=== PATIENT | female | born 1995 | race Caucasian/White ===

== ENCOUNTER 2023-03-18 15:36 | Emergency (ER) | payer OTHER, SELFPAY ==
--- NOTE | ~2023-03-18 | CT_ITS ---
EXAMINATION: CT brain wo con DATE: 03/18/2023 16:08 INDICATION: Dizziness TECHNIQUE: Computed tomography (CT) of the head was performed without intravenous contrast. Sagittal and coronal reconstructions were performed. The mA was adjusted according to patient size. Iterative reconstruction technique was employed. The dose-length product was 605.33 mGy-cm. COMPARISON: None FINDINGS: No acute intracranial hemorrhage, acute infarction or abnormal extra axial fluid collection. Ventricl es are normal and symmetric. No mass/mass effect. The orbits, paranasal sinuses and mastoid air cells are normal. IMPRESSION: 1. Normal head CT. Reviewed, dictated and finalized at location A. IMPRESSION: 1. Normal head CT.
[2023-03-18 15:49] VITALS: BP 128/86; PULSE 80; RESP 16; TEMP 36.4; O2SAT 100
--- NOTE | 2023-03-18 15:51 | ED.GENADULT ---
HPI - General Adult General Chief complaint: Dizziness Stated complaint: near syncopal episode with dizziness Time Seen by Provider: 03/18/23 18:10 History of Present Illness HPI narrative: Suzan Canales presents with reports that while she was walking at work at around 1330 she started to feel dizzy/light headed. Denies any vision changes/ denies headache. Denies any pain anywhere Takes control daily Related Data Allergies Allergy/AdvReac Type Severity Reaction Status Date / Time No Known Allergies Allergy Verified 03/18/23 17:59 Course Vital Signs Vital signs: Vital Signs Temperature 36.4 C 03/18/23 15:49 Pulse Rate 80 03/18/23 15:49 Respiratory Rate 16 03/18/23 15:49 Blood Pressure 128/86 03/18/23 15:49 Pulse Oximetry 100 03/18/23 15:49 Oxygen Delivery Room Air 03/18/23 15:49 Temperature 36.4 C 03/18/23 15:49 Pulse Rate 74 03/18/23 19:36 Respiratory Rate 18 03/18/23 19:36 Blood Pressure 120/74 03/18/23 19:36 Pulse Oximetry 100 03/18/23 19:36 Oxygen Delivery Room Air 03/18/23 15:49 Medical Decision Making MDM Narrative Medical decision making narrative: this was the MSE note, please see the alternate note by the attending Vital Signs Vital Signs: Vital Signs Temperature 36.4 C 03/18/23 15:49 Pulse Rate 80 03/18/23 15:49 Respiratory Rate 16 03/18/23 15:49 Blood Pressure 128/86 03/18/23 15:49 Pulse Oximetry 100 03/18/23 15:49 Oxygen Delivery Room Air 03/18/23 15:49 Temperature 36.4 C 03/18/23 15:49 Pulse Rate 74 03/18/23 19:36 Respiratory Rate 18 03/18/23 19:36 Blood Pressure 120/74 03/18/23 19:36 Pulse Oximetry 100 03/18/23 19:36 Oxygen Delivery Room Air 03/18/23 15:49 Lab Data 03/18/23 16:01 03/18/23 16:01 Labs: Lab Results 03/18/23 03/18/23 Range/Units 16:01 16:04 WBC 7.3 (4.5-10.0) K/mm3 RBC 4.51 (4.2-5.4) M/mm3 Hgb 13.5 (12.0-15.0) g/dL Hct 41.0 (37.0-47.0) % MCV 90.9 (80-100) fl MCH 29.9 (26-34) pg MCHC 32.9 (32-36) g/dl RDW 12.9 (11.5-14.5) % Plt Count 242 (150-375) k/mm3 MPV 10.3 (7.4-10.4) fl Immature Gran % (Auto) 0.3 (0-0.5) % Neut % (Auto) 48.8 (45.5-73.1) % Lymph % (Auto) 38.9 (18.3-44.2) % [place] % (Auto) 6.5 (2.6-8.5) % Eos % (Auto) 4.7 H (0-4.4) % Baso % (Auto) 0.8 (0.2-1.2) % Lymph # (Auto) 2.83 (0.9-3.2) K/mm3 [place] # (Auto) 0.5 (0.1-0.6) K/mm3 Eos # (Auto) 0.3 (0-0.3) K/mm3 Baso # (Auto) 0.1 (0.0-0.1) K/mm3 Abs Immat Gran (auto) 0.02 (0.00-0.031) K/mm3 Absolute Neuts (auto) 3.6 (1.3-6.7) K/mm3 Absolute Nucleated RBC 0.0 (0.0-0.012) K/mm3 Nucleated RBC % 0.0 (0.0-0.2) % Sodium 140 (137-145) mmol/L Potassium 3.3 L (3.4-5.0) mmol/L Chloride 105 (98-107) mmol/L Carbon Dioxide 27 (22-30) mmol/L Anion Gap 8 (8-16) mmol/L BUN 5 L (7-17) mg/dL Creatinine 0.60 L (0.7-1.0) mg/dL Estim Creat Clear Calc 112 ml/min Estimated GFR > 60 (59 - ) Glucose 98 (65-110) mg/dL Calcium 9.0 (8.4-10.2) mg/dL Total Bilirubin 0.5 (0.2-1.3) mg/dL AST 22 (14-36) U/L ALT 26 (6-35) U/L Alkaline Phosphatase 45 (38-126) U/L Total Protein 9.0 H (6.3-8.2) g/dL Albumin 4.6 (3.5-5.1) g/dL Urine Color Yellow (Yellow) Urine Appearance Clear (Clear) Urine pH 6.5 (5.0-9.0) Ur Specific [place] 1.006 (1.001-1.035) Urine Protein Negative (Negative) mg/dL Urine Glucose (UA) Negative (Negative) mg/dL Urine Ketones Negative (Negative) mg/dL Ur Blood (Man) Negative (Negative) Urine Nitrate Negative (Negative) Urine Bilirubin Negative (Negative) Urine Urobilinogen 0.2 (<2.0) mg/dL Leukocyte Esterase Rfl Trace H (Negative) TIBURCIO/UL Urine RBC 0-2 (0-2) /hpf Urine WBC 0-5 /hpf Ur Squamous Epith Cells Occasional (Few) /hpf Urine Bacteria None seen /hpf Urine Cast
--- NOTE | 2023-03-18 15:52 | ECG_ITS ---
Measurements Intervals [place] Rate: 87 P: 69 AL: 134 QRS: 79 QRSD: 97 T: 38 QT: 358 QTc: 431 Interpretive Statements SINUS RHYTHM NORMAL ECG NO PREVIOUS ECG AVAILABLE FOR COMPARISON Electronically Signed On 03-19-2023 8:54:20 CDT by Stu Thayer M.D.
[2023-03-18 16:06] LABS: Basophils Absolute Auto 0.1 K/mm3 (0.0-0.1); Basophils Percent Auto 0.8 % (0.2-1.2); Eosinophils Absolute Auto 0.3 K/mm3 (0-0.3); Eosinophils Percent Auto 4.7 % (0-4.4); Hemoglobin 13.5 g/dL (12.0-15.0); Immature Granulocyte Absolute 0.02 K/mm3 (0.00-0.031); Immature Granulocyte Percent A 0.3 % (0-0.5); Lymphocytes Absolute Auto 2.83 K/mm3 (0.9-3.2); Lymphocytes Percent Auto 38.9 % (18.3-44.2); Mean Corpuscular HGB Conc 32.9 g/dl (32-36); Mean Corpuscular Hemoglobin 29.9 pg (26-34); Mean Corpuscular Volume 90.9 fl (80-100); Mean Platelet Volume 10.3 fl (7.4-10.4); Monocytes Absolute Auto 0.5 K/mm3 (0.1-0.6); Monocytes Percent Auto 6.5 % (2.6-8.5); Neutrophils Absolute Auto 3.6 K/mm3 (1.3-6.7); Neutrophils Percent Auto 48.8 % (45.5-73.1); Platelet Count Result 242 k/mm3 (150-375); Red Blood Count 4.51 M/mm3 (4.2-5.4); Red Cell Distribution Width 12.9 % (11.5-14.5); White Blood Count 7.3 K/mm3 (4.5-10.0)
[2023-03-18 16:15] LABS: Alanine Aminotransferase 26 U/L (6-35); Albumin Level 4.6 g/dL (3.5-5.1); Alkaline Phosphatase 45 U/L (38-126); Anion Gap 8 mmol/L (8-16); Aspartate Amino Transferase 22 U/L (14-36); Bilirubin,Total 0.5 mg/dL (0.2-1.3); Blood Urea Nitrogen 5 mg/dL (7-17); Carbon Dioxide 27 mmol/L (22-30); Chloride 105 mmol/L (98-107); Estimated CRCL calculation 112 ml/min; Estimated Glomerular Filt Rate > 60; Glucose 98 mg/dL (65-110); Potassium 3.3 mmol/L (3.4-5.0); Sodium 140 mmol/L (137-145)
[2023-03-18] MEDS: MECLIZINE HCL 25 MG TABLET PO (16:26)
[2023-03-18 16:45] LABS: Appearance Urine Clear (Clear); Bacteria Urine None Seen /hpf; Bilirubin Urine Negative (Negative); Blood Urine Negative (Negative); Color Urine Yellow (Yellow); Glucose Urine UA Negative (Negative); Ketones Urine Negative (Negative); Leukocyte Esterase Ur Trace LEU/UL (Negative); Nitrate Urine Negative (Negative); Non Pathogenic Casts 0-2; Protein Urine Negative (Negative); RBC Urine 0-2 /hpf (0-2); Specific Grav Ur 1.006 (1.001-1.035); Squamous Epithelial Cell Urine Occasional /hpf (Few); Urobilinogen Urine 0.2 mg/dL (<2.0); WBC Urine 0-5 /hpf; pH Urine 6.5 (5.0-9.0)
[2023-03-18 17:05] LABS: Add Urine Microscopic? YES
--- NOTE | 2023-03-18 18:28 | ED.DIZZY ---
HPI - Dizziness General Chief Complaint: Dizziness Stated Complaint: near syncopal episode with dizziness Time Seen by Provider: 03/18/23 18:10 History of Present Illness HPI Narrative: 27 years old white female came to the emergency room because of sudden onset of dizziness, felt like she was going to pass out on arrival to her work today. Patient was standing for few minutes when she started having this symptom. She denies aggravating or relieving factors. Patient reported having similar symptoms in the past but did not last longer like today. Patient still having the symptoms after arrival to the ED. She denies any fever, chills, nausea, vomiting. Currently on control, she vapes, she does not drink or uses marijuana. She denies any headache, chest pain, shortness of breath, palpitation, back pain or abdominal pain. Related Data Allergies Allergy/AdvReac Type Severity Reaction Status Date / Time No Known Allergies Allergy Verified 03/18/23 17:59 Review of Systems Review of Systems: All systems reviewed & are unremarkable except as noted in HPI and below Exam Narrative: General appearance: Well-developed, well-nourished Skin: Normal color Head: Normocephalic, nontraumatic Eyes: Clear conjunctiva ENT: Oropharynx normal, ears normal, nose normal Neck: Supple, nontender Chest and respiratory: Airway patent, no respiratory distress, no accessory muscle use Heart: Regular rate/rhythm Abdomen: Soft, nontender, no organomegaly, quiet bowel sounds Vascular: Normal peripheral pulses, normal capillary refill. Musculoskeletal: Normal range of motion, nontender back Neurologic: Alert and oriented ?3, THEATRICAL PERFORMER is normal as tested, no gross motor deficit Course Reevaluation(s) Reevaluation #1: Patient feeling much better at the time of discharge, denying any symptoms, was able to get out of bed and walk around in the ED without any complaint. Date: 03/18/23 Time: 22:10 Vital Signs Vital signs: Vital Signs Temperature 36.4 C 03/18/23 15:49 Pulse Rate 80 03/18/23 15:49 Respiratory Rate 16 03/18/23 15:49 Blood Pressure 128/86 03/18/23 15:49 Pulse Oximetry 100 03/18/23 15:49 Oxygen Delivery Room Air 03/18/23 15:49 Temperature 36.4 C 03/18/23 15:49 Pulse Rate 74 03/18/23 19:36 Respiratory Rate 18 03/18/23 19:36 Blood Pressure 120/74 03/18/23 19:36 Pulse Oximetry 100 03/18/23 19:36 Oxygen Delivery Room Air 03/18/23 15:49 MDM - Dizziness MDM Narrative Medical decision making narrative: Patient presents with dizziness on arrival to work today. Vital signs unremarkable, physical examination as above, differential diagnosis includes orthostatic hypotension, electrolyte imbalance, dehydration, anxiety-like symptoms, vertigo. Work-up today include CBC, CMP, urine analysis showed no acute abnormalities CT head showed no acute abnormalities. Patient's mother reports that patient been working 2 jobs with long hours without rest. Stress, anxiety high likely going on in her life lately. Plan to discharge patient on no medication at this time, 3 days excuse of work and to follow-up with her family physician for further evaluation. Patient agreed. Differential Diagnosis Differential diagnosis: Likely orthostatic hypotension Medical Records Attestation: I reviewed the patient's medical records. Lab Data Attestation: I reviewed the patient's lab results. 03/18/23 16:01 03/18/23 16:01 Labs: Lab Results 03/18/23 03/18/23 Range/Units 16:01 16:04 WBC 7.3 (4.5-10.0) K/mm3 RBC 4.51 (4.2-5.4) M/mm3 Hgb 13.5 (12.0-15.0) g/dL Hct 41.0 (37.0-47.0) % MCV 90.9 (8
[2023-03-18 19:36] VITALS: BP 120/74; PULSE 74; RESP 18; O2SAT 100
== END 2023-03-18 19:36 | disposition home or self-care (01) ==
PROVIDERS: Nurse Practitioner Family; Emergency Provider Emergency Medicine; PCP Internal Medicine
DX: R42 Dizziness and giddiness (principal)
CPT/HCPCS: 36415; 70450; 80053; 81001; 85025; 93005; 99284; A9270

== ENCOUNTER 2023-05-13 10:29 | Emergency (ER) | payer OTHER, SELFPAY ==
--- NOTE | ~2023-05-13 | XR_ITS ---
EXAMINATION: XR ankle RT min 3V INDICATION: Right ankle pain TECHNIQUE: Four views of the right ankle are obtained. COMPARISON: None available FINDINGS: There is a subtle lucency in the proximal/dorsal aspect of the navicular which has a chroni c appearance. No acute fracture is identified. Bone alignment is normal. The soft tissues are unremar kable. IMPRESSION: 1. No acute osseous abnormality. Reviewed, dictated and finalized at location L. CO PLASTERER
[2023-05-13 10:39] VITALS: BP 127/86; PULSE 100; RESP 16; TEMP 37.1; O2SAT 100
--- NOTE | 2023-05-13 10:44 | ED.LOWEXIN ---
HPI - Extremity Injury (Lower) General Chief Complaint: Extremity Injury, Lower Stated Complaint: Right Ankle Pain Time Seen by Provider: 05/13/23 10:44 Source: patient, RN notes reviewed and old records reviewed Mode of arrival: ambulatory Limitations: no limitations History of Present Illness HPI Narrative: 28-year-old female presents to [facility] with complaints of right ankle pain since yesterday. No treatment prior to arrival. Patient states that she went to stand up out of a chair and rolled her ankle in for sleep. No bruising or swelling noted. No ecchymosis or erythema. Onset (ago): day(s) (1) Related Data Home Medications Medication Instructions Recorded Confirmed bupropion HCl 150 mg 24 hr tablet, mg PO 05/13/23 extended release levonorgestrel 0.15 mg-ethinyl tablet 05/13/23 estradiol 0.03 mg tablet (Altavera (28)) Allergies Allergy/AdvReac Type Severity Reaction Status Date / Time No Known Allergies Allergy Verified 05/13/23 10:43 Review of Systems Review of Systems: All systems reviewed & are unremarkable except as noted in HPI and below Constitutional: Constitutional: Reports no additional constitutional complaints Eyes: Eyes: Reports no additional eye complaints ENT: Reports system reviewed and no additional complaints, except as documented Cardiovascular: Cardiovascular: Reports no additional cardiovascular complaints, Denies chest pain and Denies dyspnea Respiratory: Respiratory: Reports no additional respiratory complaints, Denies chest congestion, Denies cough and Denies dyspnea Gastrointestinal: Gastrointestinal: Reports no additional gastrointestinal complaints, Denies abdominal pain, Denies nausea and Denies vomiting Musculoskeletal: Musculoskeletal: Reports as per HPI, Reports arthralgias and Denies joint swelling Integumentary/Breasts: Skin/Breast: Reports system reviewed and no additional complaints, except as docu Neurologic: Reports system reviewed and no additional complaints, except as documented Psychiatric: Psychiatric: Reports no additional psychiatric complaints Allergic/Immunologic: Allergic/Immunologic: Reports no additional allergic/immunologic complaints PMFSH Comments At the time of my signature, I reviewed and agree with the nursing past medical, surgical, social, and family history. There is no relevant family history pertinent to the patient complaint. Exam Const: General: cooperative, healthy appearing, comfortable, no acute distress, well developed, alert and well nourished Nutritional Appearance: well nourished Orientation/consciousness: patient oriented x3 Limitations: no limitations HENMT: Head: normal to inspection Ears: hearing grossly normal bilaterally and external ears normal Face/Nose/Sinus: Normal external nose present, Normal nares present, Normal nasal mucous membranes and turbinates present, normal facial exam and face symmetric Face and sinus: normal facial exam and face symmetric Eyes: General: appearance normal, both eyes and all related structures Alignment and Position: alignment normal Periorbital: periorbital findings normal Pupils: Equal, round and reactive pupils present EOM: EOMs intact bilaterally Neck: Neck: normal visual inspection, full ROM, no lymphadenopathy and no meningeal signs Chest: Chest palpation & inspection: normal inspection of the chest Resp: Effort & Inspection: normal respiratory effort and able to speak in complete sentences Auscultation: clear to auscultation bilaterally, no crackles, no rales, no rhonchi and no wheezes Cardio: Rate: regular rate Rhythm: regular rhythm Back/Spine/Pelvis: Cervical Spine: cervical ROM normal Skin: General skin exam: normal color and no rashes or lesions noted Lesions: no lesions Rashes: no rashes Wounds: no wounds Neuro: General: patient oriented x3, gait normal, tone normal, moves all extremities and no meningeal signs Cranial nerves: Yes Equal, round
== END 2023-05-13 11:19 | disposition home or self-care (01) ==
PROVIDERS: Emergency Provider Nurse Practitioner; PCP Internal Medicine
DX: S93.401A Sprain of unspecified ligament of right ankle, initial encounter (principal); X50.9XXA Other and unspecified overexertion or strenuous movements or postures, initial encounter
CPT/HCPCS: 73610; 99213; G0463

== ENCOUNTER 2023-07-13 11:45 | Emergency (ER) | payer OTHER, SELFPAY ==
--- NOTE | 2023-07-13 11:46 | ED.URI ---
HPI - URI/Sore Throat General Chief Complaint: Upper Respiratory Infection Stated Complaint: sore throat Time Seen by Provider: 07/13/23 11:46 Source: patient Mode of arrival: ambulatory Limitations: no limitations History of Present Illness HPI Narrative: Suzan is a 28-year-old female patient presenting to the clinic today with complaints of a sore throat x3 days. She reports she has has a little bit of nasal congestion as well. Denies any fever, chills, body aches. No known exposure to anyone with strep, COVID, or influenza. Has done a at home COVID test and it was negative. MD elicited complaint: sore throat and nasal congestion Related Data Home Medications Medication Instructions Recorded Confirmed levonorgestrel 0.15 mg-ethinyl 1 tablet PO DAILY 05/13/23 07/13/23 estradiol 0.03 mg tablet (Altavera (28)) Allergies Allergy/AdvReac Type Severity Reaction Status Date / Time No Known Allergies Allergy Verified 07/13/23 12:03 Review of Systems Review of Systems: Pertinent positives per HPI. Patient denies any fever, chills, rash, headache, visual changes, dizziness, cough, shortness of breath, chest pain, palpitations, nausea, vomiting, diarrhea, constipation, abdominal pain, or any urinary issues. PMFSH Comments At the time of my signature, I reviewed and agree with the nursing past medical, surgical, social, and family history. There is no relevant family history pertinent to the patient complaint. Exam Narrative: General: Well-developed, well nourished, in no apparent distress Head: Normocephalic, atraumatic Eyes: Pupils equally round and reactive to light bilaterally, EOM intact, sclera and conjunctive clear, no discharge, lids normal Ears: TMs intact and clear, ear canals clear, no drainage, grossly hearing normal. Nose: Nares patent, clear nasal discharge, no inflammation, no sinus tenderness. Mouth: Oral pharynx red without lesions or masses, good dentition, MMM. Neck: Supple, trachea midline, no enlargement of anterior or posterior cervical nodes, no thyroid masses or goiter palpable. Cardio: Regular rate and rhythm, s1 and s2 normal, no murmur appreciated. Resp: Clear to auscultation bilaterally, no rhonchi, rales, wheezing or rubs Course Course Emergency Course: Portions of this record may have been created with voice recognition software. Level of Care: Express Care Visit Vital Signs Vital signs: Vital signs reviewed MDM - URI/Sore Throat MDM Narrative Medical decision making narrative: At the time of visit patient is resting comfortably on the exam table. Patient appears to be nontoxic. Labs: Strep test was negative in the clinic today. We will send for culture Plan: I suspect patient has viral pharyngitis. Supportive measures were discussed with the patient and they voiced understanding discharge instructions and agrees to treatment plan. Return precautions reviewed Differential Diagnosis Differential diagnosis: Likely upper respiratory infection, otitis media, sinusitis, viral infection, bronchitis, influenza, pharyngitis and other (COVID) Discharge Plan Discharge Clinical Impression: Acute viral pharyngitis Patient Disposition: Home, Self-Care Condition: Stable Instructions: Antibiotic Form, Pharyngitis (ED) Additional Instructions: Strep test was negative in the clinic today. We will send for culture if this comes back positive we will contact you and place you on antibiotics at that time. Increase fluids and stay well hydrated Tylenol/motrin for pain/fever Flonase and OTC antihistamines as directed Vicks vapor rub to open sinuses Sinus rinses for congestion Cepacol spray, cough drops, throat lozenges, warm tea with honey/lemon, gargle salt water to soothe throat BRAT diet for diarrhea Clear liquids x 24 hours then advance as tolerated for nausea/vomiting Go to the ED if you develop a worsening in your condition- high feve
[2023-07-13 11:52] VITALS: BP 130/78; PULSE 101; RESP 16; TEMP 37.2; O2SAT 99
== END 2023-07-13 12:32 | disposition home or self-care (01) ==
PROVIDERS: Emergency Provider Nurse Practitioner Family; PCP Internal Medicine
DX: J02.9 Acute pharyngitis, unspecified (principal)
CPT/HCPCS: 87081; 87880; 99213; G0463

== ENCOUNTER 2024-09-30 16:08 | Emergency (ER) | payer OTHER, SELFPAY ==
--- OUTSIDE RECORDS SUMMARY | 2024-09-30 16:11 | XMS_ITS | Clinical Summary ---
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 This disclosure is being madepursuant to the Care Everywhere program and may not contain all information available regarding this patient. Last updated 18.[facility] Allergies No known active allergies Medications * Be aware that medications may not be up to date on this document. Alwaysverify current medications with the patient. OtherIndications: oral contraception Reasons: oral contraception Active ondansetron, disintegrating, (Zofran ODT) 4 MG tablet Take 1 (one) tablet by mouth every 6 hours as needed for Nausea/Vomiting Allow tablet to dissolve on the tongue 20 tablet 05/17/20 Active Active Problems No known active problems Social History Tobacco Use Types Packs/Day Years Used Date Smoking Tobacco: Every Day Cigarettes Smokeless Tobacco: Never AUDIT-C Answer Date Recorded Q1: How often do you have a drink containing alcohol? Never 05/17/2024 Q2: How many drinks containi ng alcohol do you have on a typical day when you are drinking? Patient does not drink Q3: How often do you have si x or more drinks on one occasion? 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 Gender Identity Not on file Sexual Orientation Not on file Last Filed Vital Signs Vital Sign Reading Time Taken Comments Blood Pressure 114/80 05/17/2024 9:53 AM RESISTANCE MACHINE WELDER SETTER Pulse 86 05/17/2024 9:53 AM RESISTANCE MACHINE WELDER SETTER Temperature 36.6 C (97.8 F) 05/17/2024 7:35 AM RESISTANCE MACHINE WELDER SETTER Respiratory Rate 16 05/17/2024 9:53 AM RESISTANCE MACHINE WELDER SETTER Oxygen Saturation 98% 05/17/2024 9:53 AM RESISTANCE MACHINE WELDER SETTER Inhaled Oxygen Concentration - - Weight 77.1 kg (170 lb) 05/17/2024 7:35 AM RESISTANCE MACHINE WELDER SETTER Height 167.6 cm (5' 6 ) 05/17/2024 7:35 AM RESISTANCE MACHINE WELDER SETTER Body Mass Index 27.44 05/17/2024 7:35 AM RESISTANCE MACHINE WELDER SETTER Plan of Treatment Health Maintenance Due Date Last Done Comments PAP SMEAR 1995 HEPATITIS C SCREENING 03/20/2013 DTAP/TDAP/TD VACCINES (1 - Tdap) 2014 HEPATITIS B VACCINE (1 of 3 - 19+ 3-dose series) 2014 PNEUMOCOCCAL VACCINE (1 of 2 - PCV) 2014 COVID-19 VACCINE (3 - 2023-2 5 season) 2024 04/18/2021, 03/28/2021 DEPRESSION SCREENING 06/02/2024 INFLUENZA VACCINE (Season Ended) 2025 01/29/2023 ZOSTER VACCINE (1 of 2) 2045 HIV SCREENING Completed 01/22/2024 HIB VACCINE Aged Out No longer eligi ble based on patient's age to complete this topic HPV VACCINE Aged Out No longer eligi ble based on patient's age to complete this topic MENINGOCOCCAL (Group B) VACCINE SHARED DECISION-MAKING Aged Out No longer eligible based on patient's age to complete this topic MENINGOCOCCAL GROUPS A/C/Y/W VACCINE Aged Out No longer eligible b ased on patient's age to complete this topic Insurance [facility] Care Teams Warehouse Forklift Operator Relationship Specialty Start Date End Date Luis Goins MD [address] [place] [address] PCP - General Family Medicine 05/16/24 Luis Goins MD [address] [place] [id number] Family Medicine 11/22/19 Luis Goins MD [address] [place] [id number] Family Medicine 12/15/16
--- OUTSIDE RECORDS SUMMARY | 2024-09-30 16:12 | XMS_ITS | Data Portability ---
Author Organization [place] [facility] [employer] Main Office Address [address] [place] [address] Care Team Providers Care Loom Overhauler Name Role Phone JANES HESTER Primary Care Provider [phone] JANES HESTER Referring Provider Assessment Encounter Date Assessment Date Assessment LastModified by Organization Details LastModified Time 09/15/2024 09/15/2024 29-year-old female presents for evaluation of her left knee. She reports pain for about 2 months. She denies having any acute injury. She has pain, catching, and locking up on a daily basis. 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 It is especially bad when she needs to pull something backwards. She has been wearing a knee brace, taking Tylenol and ibuprofen, and icing. She currently rates her pain as 4/10. Review of systems per patient questionnaire She has tenderness palpation of the medial and lateral joint line. Range of motion 10-120, pain in terminal flexion as well as terminal extension, positive Christina's. 1A Khadra, stable posterior drawer, stable varus valgus stress. X-rays were reviewed, demonstrating no acute bony abnormality She has significant pain, mechanical symptoms, and limited mobility of the knee. She may have a displaced meniscus tear we will obtain an MRI to evaluate that. We will also send her to physical therapy to work on range of motion and strengthening, as well as a course of anti-inflammator ies with meloxicam. She can also use a compressive wrap and we gave her Martin bandage for that. We will see her back after the scan. She is in agreement with plan. [email or web address] Not available 09/15/2024 17:16:32 Plan of Treatment Reminders Order Date Submit Date Provider Last Modified By Organization Details Last Modified Time Details Appointments Any 5 2024 02:55P M Grupo Carrillo MD Not available Not available Not available Any 15 2024 04:15P M Janes echols MD Not available Not available Not available Lab None recorded. Referral physical therapist referral - Please contact pt to schedule apt for L knee. THanks 2024 [facility], [address], [place], [address], 09/29/2024 14:08:11 Procedures None recorded. Surgeries None recorded. Imaging XR, knee, 3 view 2024 [facility] [place], [address], [place], [address], 09/28/2024 23:07:25 MRI, knee, w/o contrast - Please provide pt with disc to bring to apt. Thanks [email or web address] [facility] [address] [facility], [address], [address], [place], [address], 09/28/2024 23:07:25 Medication Orders meloxicam 15 mg tablet 2024 [email or web address] [id number], [address], [place], [address], 09/28/2024 23:07:25 Patient TargetsNo targets recorded. Patient InstructionsNo instructions recorded. Reason for Referral [facility] Referral for Gynecologic examination Please call patient to schedule an appointment. Thank you. Referring Physician: Janes Hester, Internal Medicine, Encounter Date: 08/11/2024 Orthopedic Surgeon Referral for Pain of left knee joint Please call patient to schedule an appointment. Thank you. Referring Physician: Janes Hester, Internal Medicine, Encounter Date: 08/11/2024 Physical Therapist Referral for Pain of left knee joint L knee Please contact pt to schedule apt for L knee. THanks Referring Physician: Grupo Carrillo, Orthopedic Surgery, Encounter Date: 09/15/2024 Results Created Date Observation Date Name Description Value Unit Range Abnormal Flag Note LastModifiedBy Organization Detail LastModifiedTime 05/13/20 23 05/13/2023 XR, ankle No observ ation record ed. [email or web address] [facility] [address], [place], [address], 09/09/2024 10:57:57 09/16/19 25 XR, knee, 3 view No observ ation record ed. [email or web address] [facility] [address], [place], [address], 09/15/2024 15:33:59 Result Notes None recorded. Problems Name Problem SNOMED Code Status Onset Date Resolution Date Notes Provider Name and Address Organization Details Recorded Time Shoulder joint pain 691596608 Active Not Available [facility] 15:42:13 Vitamin D deficiency 97958382 Active 2021 Not Available [employer] 3 15:42:13 Hyperlipid emia 30626377 Active 2021 Not Available [employer] 3 15:42:13 Vasovagal syncope 081052399 Active 2024 Janes kwon MD [address] [facility], [facility] [address], [place], [address] , Graine de Cadeaux 5 14:14:48 Pain of left knee joint 1719542832184 07 Active 2024 Janes kwon MD [address] [facility], [facility] [address], [place], [address] , Graine de Cadeaux 5 17:57:54 Nicotine dependence 37806140 Active 2024 Sunitha Fleming MA null, Graine [facility] [place] 5 13:50:28 Problem Notes None recorded. Procedures Surgical History Date Name Laterality Status Provider Name and Address Organization Details Recorded Time [employer] completed AGNIESZKA Delgado [facility] 08/11/2024 17:31:48 removal of mole of skin by excision completed AGNIESZKA Delgado [facility] [employer] [facility] 08/11/2024 17:32:03 Imaging Results Imaging Date Name Status LastModified by Organiz ation Details LastModified Time 05/13/2023 XR, ankle completed [email or web address] [facility] [address], [place], [address], 09/09/2024 10:57:57 09/15/2024 XR, knee, 3 view completed [facility] [place] [facility] [place] [address], [place], [address], 09/15/2024 15:33:59 Procedure Notes None recorded. Medical Equipment None Reported. Allergies Allergen ID Allergen Name Allergen Category Reaction Reaction Severity Criticality Documentation Date Start Date Code Code System Note Provider Name and Address Organization Details Recorded Time 45547 adhesive tape environme nt,medica tion rash Not available Not available 08/11/2024 [id number] UNK AGNIESZKA Delgado [place] [facility] cortical[facility] 17:21:00 Medications Name Sig Start Date Stop Date Status Note LastModified by Organization Details LastModified Time hydrocodone 5 mg-acetamin ophen 325 mg tablet 11/03 completed Not Available Not Available Not Available meloxicam 15 mg tablet Take 1 tablet every day by oral route. 2024 active Not Available Not Available Not Avai lable penicillin V potassium 500 mg tablet 02/19 completed Not Available Not Available Not Available metronidazo le 500 mg tablet TAKE 1 TABLET BY MOUTH EVERY 12 HOURS FOR 7 DAYS active Not Available Not Available No t Available nicotine 21 mg/24 hr daily transdermal patch APPLY 1 PATCH DAILY TO SKIN active Not Available Not Available No t Available cefuroxime axetil 500 mg tablet TAKE 1 TABLET BY MOUTH TWICE A DAY FOR 14 DAYS 09/15 completed Not Available Not Available Not Available hydroxyzine HCl 10 mg tablet Take by oral route for 30 days. active Not Available Not Available No t Available ondansetron 4 mg disintegrat ing tablet DISSOLVE 1 TABLET ON THE TONGUE EVERY 6 HOURS NEEDED FOR NAUSEA AND VOMITING active Not Available Not Available No t Available rosuvastati n 40 mg tablet TAKE 1 TABLET BY MOUTH EVERY DAY active Not Available Not Available No t Available nitrofurant oin monohydrate /macrocryst als 100 mg capsule TAKE 1 CAPSULE BY MOUTH TWICE A DAY FOR 5 DAYS active Not Available Not Available No t Available L norgest/E estradiol-E estrad 0.15 mg-30 mcg (84)/10 mcg(7) tabs,3mos TAKE 1 TABLET BY MOUTH EVERY DAY 08/11 completed Not Available Not Available Not Available cholecalcif ion (vitamin D3) 1,250 mcg (50,000 unit) capsule TAKE 1 CAPSULE BY MOUTH ONCE A WEEK FOR 8 WEEKS. TAKE WITH OVER THE COUNTER CALCIUM active Not Available Not Available No t Available Introvale 0.15 mg-30 mcg (91) tablets,3 month dose pack Take 1 tablet every day by oral route. active Not Available Not Available No t Available Altavera (28) 0.15 mg-0.03 mg tablet TAKE 1 TABLET BY MOUTH EVERY DAY active Not Available Not Available No t Available ID NOW COVID-19 Test Kit DIRECTED 02/19 completed Not Available Not Available Not Available Vitals Date Recorded Oxygen saturation Oxygen saturation in Arterial blood by Pulse oximetry Heart rate Body temperature Body weight Systolic blood pressure Diastolic blood pressure Provider Name and Address Organization Details Last Updated DateTime 1 98 % 98 % 99 /min 96.8 [degF] 78420.2 2 g 110 mm[Hg] 70 mm[Hg] Not Available [facility] 3 15:41:45 Date Recorded Body height Body mass index (BMI) Body weight Body temperature Heart rate Systolic blood pressure Diastolic blood pressure Provider Name and Address Organization Details Last Updated DateTime 5 167.64 cm 25.8 kg/m2 79573.7 8 g 98.3 [degF] 84 /min 120 mm[Hg] 86 mm[Hg] AGNIESZKA Delgado [place] [employer] [facility] 5 17:33:57 Date Recorded Body height Body mass index (BMI) Body weight Pain severity - 0-10 verbal numeric rating [Score] - Reported Provider Name and Address Organization Details Last Updated DateTime 09/15/2024 167.64 cm 26.6 kg/m2 17322.74 g 4 Akosua Rush AGNIESZKA Graine de Cadeaux 09/15/2024 15:32:26 Social History Question Answer Notes LastModified by Organizat ion Details LastModified Time Tobacco Smoking Status Never Smoker AGNIESZKA Delgado null, [employer] 08/11/2024 17:29:21 Do You Have An Advance Directive? No Information not available 08/11/2024 What Is Your Level Of Alcohol Consumption? Occasional Information not available 08/11/2024 What Is Your Level Of Caffeine Consumption? Heavy Information not available 08/11/2024 In The 14 Days Before Symptom Onset, Have You Had Close Contact With A Laboratory-confir med COVID-19 While That Case Was Ill? No [id number] Information not available 07/31/2022 In The 14 Days Before Symptom Onset, Have You Had Close Contact With A Person Who Is Under Investigation For COVID-19 While That Person Was Ill? No [id number] Information not available 07/31/2022 Are You Currently Employed? Yes Information not available 08/11/2024 What Type Of Diet Are You Following? REGULAR Information not available 08/11/2024 Which Illicit Or Recreational Drugs Have You Used? Marijuana Information not available 08/11/2024 What Is The Highest Grade Or Level Of School You Have Completed Or The Highest Degree You Have Received? 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 Unknown Information not available 08/11/2024 Are There Any Guns Present In Your Home? No Information not available 08/11/2024 Where Do You Live? SingleLevelHouse Information not available 08/11/2024 Do You Have A Medical Power Of Cv Rn? No Information not available 08/11/2024 What Was The Date Of Your Most Recent Tobacco Screening? 08/11/2024 Information not available 08/11/2024 Do You Have Any Pets? Yes Information not available 08/11/2024 What Is Your Relationship Status? Domestic Partner Information not available 08/11/2024 Do You Use Your Seat Belt Or Car Seat Routinely? Yes Information not available 08/11/2024 Do You Have Smoke And Carbon Monoxide Detectors In Your Home? Yes Information not available 08/11/2024 Are You Passively Exposed To Smoke? Yes Information no t available 08/11/2024 Are There Any Smokers In Your House? Yes Information not available 08/11/2024 Do You Feel Stressed (tense, Restless, Nervous, Or Anxious, Or Unable To Sleep At Night)? [id number] Information not available 08/11/2024 Do You Use Any Illicit Or Recreational Drugs? Yes Information not available 08/11/2024 Has Tobacco Cessation Counseling Been Provided? No N/a Information not available 08/11/2024 Have You Recently Traveled Abroad? No [id number] Information not available 07/31/2022 Have You Used IV Drugs? No Information not available 08/11/2024 Do You Or Have You Ever Used Any Other Forms Of Tobacco Or Nicotine? No Information not available 08/11/2024 Sex: Female Functional Status Question Answer Note LastModified by Organizat ion Details LastModified Time What is your exercise level? Occasional stays active with work Information not available 08/11/2024 Mental Status None recorded. Family History Relationship Description Onset Age of this Age Resolved Age Notes LastModified by Organization Details LastModified Time Father Anemia Not available 08/11/2024 17:37:41 Father Anxiety Not available 08/11/2024 17:37:59 Father Chronic obstructive pulmonary disease Not available 2024 17:38:10 Father Hypertensive disorder Not available 2024 17:38:20 Father Hyperlipidem ia Not available 2024 17:38:30 Father Coronary arterioscler osis Not available 2024 17:42:38 Father Gastroesopha geal reflux disease Not available 2024 17:38:53 Father Ulcerative colitis Not available 2024 17:39:02 Father Diabetes mellitus Not available 2024 17:39:15 Mother Autoimmune disease Not available 2024 17:39:43 Mother Hyperlipidem ia Not available 2024 17:39:59 Mother Vitamin D deficiency Not available 08/11 17:40:21 Mother Chronic obstructive pulmonary disease Not available 2024 17:40:53 Maternal Grandmother Hyperlipidem ia [email or web address] Not available 2024 17:41:46 Maternal Grandmother Hypertensive disorder Not available 2024 17:42:03 Maternal Grandmother Hypothyroidi sm [email or web address] Not available 2024 17:42:25 Maternal Grandmother Coronary arterioscler osis Not available 2024 17:42:42 Maternal Grandmother Vitamin D deficiency [email or web address] Not available 08/11 17:42:58 Maternal Grandmother Cardiac pacemaker in situ [email or web address] Not available 2024 17:43:58 Maternal Grandmother Myocardial infarction Not available 08/11 17:44:24 Medical History Condition Response NERVE DISEASE N BLINDNESS N RHEUMATIC FEVER N KIDNEY STONES N BLADDER PROBLEMS N MRSA N OTHER # 1 N POLIO N LUNG DISEASE/DISORDER N HISTORY OF DRUG ABUSE N COPD N RADIATION / CHEMOTHERAPY N Other # 2 N BLOOD DISEASES N EAR OR HEARING PROBLEMS N MUMPS N SHINGLES N DEPRESSION (INCLUDING POST ) N BOWEL PROBLEMS N FAILED BACK SYNDROME N STROKE/TIA N ULCERS N BENIGN PROSTATIC HYPERPLASIA N MEASLES N HYPOTENSION N MYOCARDIAL INFARCTION N OBESITY N GERD/NAUSEA N ANEURYSM N URINARY/BLADDER/KIDNEY PROBLEMS N CORONARY ARTERY DISEASE (CAD) N Do you have Advance directive? N ADDICTION CONCERNS N Impotence N ENDOMETRIOSIS N USE OF BLOOD THINNERS N SKIN PROBLEMS N GASTROINTESTINAL DISORDER N PERIPHERAL VASCULAR DISEASE N MUSCLE,JOINT OR BONE PROBLEMS N GASTROINTESTINAL BLEEDING N BLOOD CLOTS N ASTHMA N CATARACTS N Abdominal Pain N ERECTILE DYSFUNCTION N ARTERIAL INSUFFICIENCY N VARICOSITIES N GI PROBLEMS N Low Testosterone N INFERTILITY N AIDS/HIV N CHEMOTHERAPY / RADIATION N LIVER DISEASE N MALE HYPOGONADISM N HYPERTENSION N Deficiency N TOURETTE'S N ANXIETY DISORDER N BLOOD TRANSFUSION N ANEMIA/BLOOD DISORDER N CHRONIC EAR INFECTIONS N TUBERCULOSIS N GLAUCOMA N FOOT PROBLEM N DIVERTICULITIS N SLEEP APNEA N CHICKENPOX N BACK INJECTIONS N ALLERGIES/HAYFEVER N INFECTIOUS DISEASE N PROSTATE N HEART ARRHYTHMIA N INSOMNIA N ESRD N HIGH CHOLESTEROL / HYPERLIPIDEMIA N HYPERTHYROIDISM N EYE PROBLEMS N PVD N EDEMA N CHRONIC PAIN SYNDROME N HYPOTHYROIDISM N CONSTIPATION N CAROTID BLOCKAGE N BACK / NECK PROBLEMS N ATHEROSCLEROSIS N BREAST PROBLEMS N DIALYSIS N POLYCYSTIC OVARIES N ECZEMA N OSTEOPOROSIS N ARTHRITIS N APPENDICITIS N DIABETES, TYPE N BAD TEETH N VON WILLIBRAND'S DISEASE N ENT N HEARTBURN / REFLUX N GI N AUTISM SPECTRUM DISORDER (ASD) N POST LAMINECTOMY SYNDROME N HEPATITIS / LIVER DISEASE N GOUT N SLEEP DISORDER N ALZHEIMER'S DISEASE N Brain Problems N HERPES N DEMENTIA N SEIZURES/EPILEPSY N HEADACHES/MIGRAINES N VASCULAR DISEASE N PACEMAKER N DIZZINESS N KIDNEY DISEASE N HEART DISEASE/HEART PROBLEMS N MULTIPLE SCLEROSIS N NEUROPSYCHOLOGICAL N CARDIAC ARRHYTHMIA N CANCER: SPECIFY N Gall Stones N ATRIAL FIBRILLATION N PULMONARY EMBOLISM N AUTOIMMUNE DISEASE N Gynecological HistoryNo gynecological history recorded. Obstetrics History GPAL:G 0 P 0 0 0 0 Immunizations Vaccine Type Date Status Note Provider Nam e and Address Organization Details Recorded Time Influenza, split virus, trivalent, PF 08/11/2024 completed AGNIESZKA Delgado, Graine de Cadeaux 08/11/2024 18:05:14 IPV 10/01/1999 completed AGNIESZKA Delgado, Graine de Cadeaux 08/11/2024 17:23:02 Influenza, MDCK, quadrivalent, PF 01/29/2023 completed AGNIESZKA Delgado null, Graine de [place]aux 08/11/2024 17:23:02 MMR 06/09/1996 completed AGNIESZKA Delgado, Graine de Cadeaux 08/11/2024 17:23:02 MMR 01/19/2001 completed AGNIESZKA Delgado null, Graine [facility] [place] 08/11/2024 17:23:02 Tdap 12/09/2006 completed AGNIESZKA Delgado, Graine de Cadeaux 08/11/2024 17:23:02 varicella 11/28/2003 completed Sussy Gurjit, RMA null, [place] [facility] 08/11/2024 17:23:02 varicella 12/09/2006 completed Sussy Halifax, RMA null, [place] [facility] 08/11/2024 17:23:02 OPV 1995 completed Sussy Gurjit, RMA null, [place] [facility] 08/11/2024 17:23:02 OPV 1995 completed Sussy Gurjit, RMA null, [place] [facility] 08/11/2024 17:23:02 OPV 1995 completed Sussy Gurjit, RMA null, [place] [facility] 08/11/2024 17:23:02 Hep B, adolescent or pediatric 06/09/1996 completed Sussy Halifax, RMA null, [facility] 08/11/2024 17:23:02 Hep B, adolescent or pediatric 1995 completed Sussy Gurjit, RMA null, [facility] 08/11/2024 17:23:02 Hep B, adolescent or pediatric 1995 completed Sussy Halifax, RMA null, [facility] 08/11/2024 17:23:02 Hib (PRP-OMP) 1995 completed Sussy Needha m, RMA null, [place] [facility] 08/11/2024 17:23:02 Hib (PRP-OMP) 10/01/1999 completed Sussy Needha m, RMA null, [place] [facility] 08/11/2024 17:23:02 Hib (PRP-OMP) 1995 completed Sussy Needha m, RMA null, [place] [facility] 08/11/2024 17:23:02 Hib (PRP-OMP) 1995 completed Sussy Needha m, RMA null, [place] [facility] 08/11/2024 17:23:02 DTaP 1995 completed Sussy Gurjit, RMA null, [place] [facility] 08/11/2024 17:23:02 DTaP 10/01/1999 completed Sussy Cagle RMMary Kay null, [place] [facility] 08/11/2024 17:23:02 DTaP 1995 completed Sussy Cagle RMMary Kay null, [place] [facility] 08/11/2024 17:23:02 DTaP 1995 completed AGNIESZKA Delgado null, [facility] 08/11/2024 17:23:02 Tdap 11/04/2019 completed Not Available [facility] 07/31/2022 15:44:09 Past Encounters Encounter ID Performer Location Encounter Start Date Encounter Closed Date Diagnosis/Indication Diagnosis SNOMED-CT Code Diagnosis ICD10 Code Diagnosis Note [id number] Janes kwon MD [facility] Internal Med [place] [address] [facility] , [facility] [place] [address] 02/19/2021 00:00:00 03/26/2021 18:01:00 [id number] Janes kwon MD [facility] [address] [facility] [address] [facility] [place] [address] 08/11/2024 17:11:20 08/11/2024 18:01:14 Screening - NAD 961400561 Z13.9 PAP: Get this done Get yearly flu shot, get tdap if not doneCan do COVID 19 boosters RTC in 3 months, do labs, ER if worse, she did verbalize her understand ing of the above Hyperlipidemia 46866206 E78.5 Not on any medGet labs Vitamin D deficiency 347 74721 E55.9 Gynecologi c examination 22647714 Z01.419 Pain of le ft knee joint 3450568462 52993 M25.562 Get a referral to ortho Administra tion of influenza vaccine 72480114 Z23 [id number] Grupo Carrillo MD [facility] Ortho Ek[facility] Martell [address] [place] [address] 09/15/2024 15:10:31 09/15/2024 16:23:28 Pain of left knee joint 0415425008 20451 M25.562 Health Concerns Section Related Observation LastModified by Organization Detai ls LastModified Time None Recorded Concern Status LastModified by Organization Details LastModified Time None Recorded Advance Directives Directive N: Payers Encounter Date Sequence Insurance Name Policy Number Policy Burns Covered Member ID Burns Member ID Guarantor Name 09/15/2024 1 [facility] [id number] Suzan Canales [id number] Suzan Canales OBGyn Episode No OBEpisode recorded.
--- OUTSIDE RECORDS SUMMARY | 2024-09-30 16:12 | XMS_ITS | Clinical Summary ---
Author Organization [facility] Address [facility] [place] [address] Care Team Providers Care Risk Reduction Counselor Name Role Phone Janes Hester MD Primary Care Provider Allergies No known active allergies Medications levonorgestrel-e thinyl estradiol 0.15-0.03 MG tablet Take 1 tablet by mouth daily. 09/18/2019 Active Family History Medical History Relation Comments COPD Father Emphysema Father Heart Disease Father No Known Problems Mother Relation Status Comments Father Alive Mother Alive Social History Tobacco Use Types Packs/Day Years Used Date Smoking Tobacco: Every Day Cigarettes Smokeless Tobacco: Never Alcohol Use Standard Drinks/Week Comments Never 0 (1 standard drink = 0.6 oz pur e alcohol) AUDIT-C Answer Date Recorded Q1: How often do you have a drink containing alc ohol? Never 05/13/2020 Average Number of Drinks Not on file 020 Frequency of Binge Drinking Not on file 05/02 Comments No Sex and Gender Information Value Date Recorded Sex Assigned at Not on file Legal Sex Female 4:56 PM [employer] Gender Identity Not on file Sexual Orientation Not on file Last Filed Vital Signs Vital Sign Reading Time Taken Comments Blood Pressure 110/78 05/13/2020 5:37 PM [employer] Pulse 85 05/13/2020 5:37 PM [employer] Temperature 36.8 C (98.2 F) 05/13/2020 5:37 PM [employer] Respiratory Rate 16 05/13/2020 5:37 PM [employer] Oxygen Saturation 98% 05/13/2020 5:37 PM [employer] Inhaled Oxygen Concentration - - Weight 77.1 kg (170 lb) 05/13/2020 5:37 PM [employer] Height 167.6 cm (5' 6 ) 05/13/2020 5:37 PM [employer] Body Mass Index 27.44 05/13/2020 5:37 PM [employer] Plan of Treatment Health Maintenance Due Date Last Done Comments Cervical Cancer Screening Pa p Smear (Age 21 to 29) Every 3 Years 1995 Cervical Cancer Screening 1995 Annual Physical 1998 Hepatitis C 2013 Hepatitis B Vaccines (1 of 3 - 19+ 3-dose series) 2014 Pneumococcal Vaccine: Pediat rics (0 to 5 Years) and At-Risk Patients (6 to 49 Years) (1 of 2 - PCV) 2014 COVID-19 Vaccine (2023-2 5 season) 2024 DTaP, Tdap and Td Vaccines ( 2 - Td or Tdap) 11/03/2029 11/04/2019 HPV Vaccines Aged Out No longer eligi ble based on patient's age to complete this topic Meningococcal B Vaccine Aged Out No l onger eligible based on patient's age to complete this topic Meningococcal Vaccine Aged Out No ziggy briseida eligible based on patient's age to complete this topic RSV Immunizations Under 20 Months Aged Out No longer eligible based on patient's age to complete this topic Insurance [facility] Care Teams Risk Reduction Counselor Relationship Specialty Start Date End Date Janes Hester MD [address] [place] [address] PCP - General INTERNAL MEDICINE 05/13/20
--- OUTSIDE RECORDS SUMMARY | 2024-09-30 16:12 | XMS_ITS | Data Portability ---
Author Organization [facility] [place] Address [address] [place] [address] [place] [address] Assessment Encounter Date Assessment Date Assessment LastModified by Organization Details LastModified Time 02/17/2023 02/17/2023 Annual gynecological exam performed. Patient will come back in a year unless there are new symptoms. [email or web address] Not available 02/17/2023 09:43:16 06/24/2024 06/24/2024 Annual gynecological exam performed. Patient will come back in a year unless there are new symptoms. [email or web address] Not available 06/24/2024 09:25:43 Plan of Treatment Reminders Order Date Submit Date Provider Last Modified By Organization Details Last Modified Time Details Appointments None recorded. Lab test, urine 2024 025 [email or web address] [place], [address], [place], [address], 5 15:29:02 test, urine 2022 023 whit [place], [address], [place], [address], 3 11:57:41 Referral gastroenter ologist referral [address] [facility], [address], [id number], [place], [address], 5 11:22:01 Procedures None recorded. Surgeries None recorded. Imaging None recorded. Medication Orders levonorgest rel 0.15 mg-ethinyl estradiol 30 mcg tablets,3 mos pack(91) 2024 025 [facility][id number], [address], [place], [address], 09:49:43 levonorgest rel 0.15 mg-ethinyl estradiol 0.03 mg tablet 2022 023 whit [facility]/Pharmacy #[id number], [address], [place], [place], [id number], 09:49:36 Patient TargetsNo targets recorded. Patient Instructions Encounter Date Encounter Id Patient Instructions Last Modified By Organization Details Last Modified Time 02/18/2023 [id number] surgical trays* vschroedter Not availab le 03/18/2023 09:05:40 Reason for Referral Grievance And Appeals Coordinator Referral for Rectal mass Referring Physician: Bhavana Eid, ELEMENT SETTER, Encounter Date: 06/24/2024 Results Created Date Observation Date Name Description Value Unit Range Abnormal Flag Note LastModifiedBy Organization Detail LastModifiedTime 02/19/2002/18/2023 pregn adamaris test, urine HCG negati ve Not Available [address], [place], [address], 02/18/2023 11:55:40 01/22/20 24 01/22/2024 CT/GC AND TRICH OMONA S VAGIN KINDRA (RRNA ), SWAB chlamydia trachomatis, PCR Negati ve negati ve Not Available [facility] (Lab) [address], [place], [address], 01/23/2024 12:42:56 01/22/20 24 01/22/2024 CT/GC AND TRICH OMONA S VAGIN KINDRA (RRNA ), SWAB neisseria gonorrhoeae, PCR Negati ve negati ve Not Available [facility] (Lab) [address], [place], [address], 01/23/2024 12:42:56 01/22/20 24 01/22/2024 CT/GC AND TRICH OMONA S VAGIN KINDRA (RRNA ), SWAB trichomonas vaginalis ribosomal RNA (rrna) Negati ve negati ve Not Available [facility] (Lab) [address] [facility], [place], [address], 01/23/2024 12:42:56 01/22/20 24 01/22/2024 HEPAT ITIS B SURFA CE ANTIG EN hepatitis B surface antigen Non-re active non-re active This assay was perfo rmed using [employer] ratio n reage nts and test kits. Value s obtai james with other assay metho ds or kits canno t be used inter hunter eably . Not Available [facility] (Lab) [address] [facility], [place], [address], 01/23/2024 13:01:53 01/22/20 24 01/22/2024 HEPAT ITIS C ANTIB EDER SCREE N, REFLE X TO CONFI RMATI ON hepatitis C antibody Non-re active non-re active Antib odies to HCV Not Detec mona, does not exclu de the possi bilit y of expos ure to HCV. Not Available [facility] (Lab) [address] [facility], [place], [address], 01/23/2024 13:01:53 01/22/20 24 01/22/2024 HIV 1/2 ANTIG EN/AN TIBOD Y, REFLE X CONFI RMATI ON HIV antigen/anti body Nonrea ctive nonrea ctive HIV-1 antig en and HIV-1 /HIV- 2 antib odies were not detec mona. No labor atory evide nce of HIV infec tion. Not Available [facility] (Lab) [address] [facility], [place], [address], 01/23/2024 13:01:54 01/22/20 24 01/22/2024 RPR SCREE N, REFLE X TITER /CONF IRMAT ION RPR screen Nonrea ctive nonrea ctive Not Available [facility] (Lab) [address] [place], [address], 01/23/2024 13:01:54 01/22/20 24 01/22/2024 HERPE S SIMPL EX VIRUS TYPE 2 SPECI FIC AB, IGG herpes simplex virus 2 IgG Negati ve negati ve Not Available [facility] (Lab) [address] [place], [address], 01/23/2024 13:01:55 01/22/20 24 01/22/2024 HERPE S SIMPL EX VIRUS TYPE 2 SPECI FIC AB, IGG herpes simples virus 2 IgG, quant <0.2 ai 0.0-0. [address] [facility] (Lab) [address] [facility], [place], [address], 01/23/2024 13:01:55 01/22/20 24 01/22/2024 HEPAT ITIS B CORE, IGM hepatitis B core IgM antibody Non-re active non-re active IgM anti- HBc not detec mona. Does not exclu de the possi bilit y of expos ure to or infec tion with HBV. Not Available [facility] (Lab) [address] [place], [address], 01/23/2024 13:01:55 06/24/19 25 06/24/2024 IMAGE GUIDE D PAP, REFLE X HPV IF ASCUS ONLY image guided Pap, reflex HPV ASCUS only SEE RESULT S BELOW abnormal CASE REPOR T: Cytol ogy Gynec ologi jackson Repor t Case: [id number] Autho magdaleno g Provi prosper: Bhavana Eid, TERI Colle cted: 06/24 0914 Order ing Locat ion: [place] [facility] Recei tiki: 06/25 0130 First Scree n: Kimmy Simms, CT Patho logis t: Fran Valverde rd, MD Speci men: Scree amarilys Pap - Image d, Cervi x STATE MENT OF ADEQU ACY: Satis facto ry for evalu ation Trans forma tion zone compo nent prese nt ----- ----- ----- ----- ----- ----- ----- ----- ----- ----- ----- ----- ----- ----- ----- ----- ----- ---- FINAL DIAGN OSIS: Epith elial Cell Abnor malit y, Squam ous Cell: Low Grade Squam ous Intra epith elial Lesio n (LSIL ). Shift in angie sugge stive of bacte rial vagin osis. Elect todd flores by Fran Valverde MD on [address] ATT[address] ----- ----- ----- ----- ----- ----- ----- ----- ----- ----- ----- ----- ----- ----- ----- ----- ----- ---- COMME NT: Slide scree james pizarro due to rejec tion by the Thinp rep Imagi ng Systgael mFrancheska CLINI JACKSON INFOR MATIO N: Menst rual Statu s: LMP (if appli cable ): Clini jackson Histo ry/Pr eviou s Pap: Type of Neopl gomez (if appli cable ): Barbarai heidi t Clini jackson Findi ngs: Other Histo ry: Hormo ana (if appli cable ): MARIA FERNANDA BARCLAY FOLLO W-UP: Follo w up as tutu laed, based on darya al guide lines and indiv idual patigael nt consi derat ions. Not Available [facility] (Lab) [address], [place], [address], 06/30/2024 14:26:59 07/05/19 25 07/07/2024 CERVI X/END OCERV IX cervical histology LSIL abnormal Not Available [facility] ([facility]) [address] , [place], [address], 07/07/2024 16:00:21 07/05/19 25 07/07/2024 CERVI X/END OCERV IX endocervical brushing histology LSIL abnormal Not Available [facility] ([facility]) [address] , [place], [address], 07/07/2024 16:00:21 07/05/19 25 07/07/2024 CERVI X/END OCERV IX results GROSS ING INFOR MATIO N: (B1) CERVI X Recei tiki in forma remigio on a SOFT BX brush is a 1.0 cm aggre gate of red-b rown mater ial, total ly submi tted. B1 DIAGN OSIS: (B1) CERVI X Low-g rade squam ous intra epith elial lesio n (LSIL ), JOSE 1. Trans forma tion zone mucos a not prese nt. MILD CERVI JACKSON DYSPL GOMEZ (N87. 0) GROSS ING INFOR MATIO N: (A1) ENDOC ERVIX Recei tiki in forma remigio on a ECC brush is a 0.8 cm aggre gate of red-b rown mater ial, total ly submi tted. A1 DIAGN OSIS: (A1) ENDOC ERVIX Low-g rade squam ous intra epith elial lesio n (LSIL ), JOSE 1. Separ ate fragm ents of benig n endoc ervic al tissu e are also prese nt. MILD CERVI JACKSON DYSPL GOMEZ (N87. 0) Not Available [facility] ([facility]) [address] , [place], [address], 07/07/2024 16:00:21 07/05/19 25 07/05/2024 pregn adamaris test, urine HCG negati ve Not Available [place] [address], [place], [address], 07/05/2024 15:28:54 Result Notes None recorded. Problems Name Problem SNOMED Code Status Onset Date Resolution Date Notes Provider Name and Address Organization Details Recorded Time SNOMED CT Concept Completed 201712/05/2020 Encntr for general adult medical exam w/o abnormal findings ;Recorde d Elsewher e: No [facility] Asst giorgio: N Practi ce ID: 0001 Darci lable Time: 01:30:00 PM Deena Hilliard [facility] 14:14:[address] Concept Completed 201712/05/2020 Encntr for colorer exam (general ) (routine ) w/o abn findings ;Recorde d Elsewher e: No [facility]at ion: [facility] Practi ce ID: 0001 Darci lable Time: 01:00:00 PM Deena Hilliard [facility] 14:14:41 Finding of pattern of menstrua l cycle [id number] Completed 201712/05/2020 Irregula r interval between menstrua l bleeding ;Recorde d Elsewher e: No Locat ion: [facility] S ource: EHR Office Asst giorgio: N Practi ce ID: 0001 Darci lable Time: 03:00:00 PM Deena Hilliard [facility] 14:14:35 Surveill ance of contrace ption Completed 201712/05/2020 Encounte r for surveill ance of contrace ptives, unspecif ied;Yaron rded Elsewher e: No Locat ion: [facility] S ource: EHR Office Asst giorgio: N Practi ce ID: 0001 Darci lable Time: 01:30:00 PM Deena johnston [facility] 14:14:44 Pregnanc y test negative [id number] Completed 201712/05/2020 Encounte r for pregnanc y test, result negative ;Recorde d Elsewher e: No [facility] Asst giorgio: N Marek ce ID: 0001 Darci lable Time: 03:00:00 PM Deena johnston, [facility] 14:14:37 Uses combined oral contrace ption [id number] Completed 201712/05/2020 Encounte r for surveill ance of contrace ptive pills;Pr actice ID: 0001 Deena Hilliard vickie, [facility] 14:14:33 Problem Notes None recorded. Procedures Surgical History Date Name Laterality Status Provider Name and Address Organization Details Recorded Time 07/05/19 Colposcopy completed COLLETTE ALVARES MD [address], [place], [address], [facility] 07/05/2024 14:35:04 06/24/19 25 Date of Last Pap Smear completed Deena Hilliard [facility] 06/30/2024 16:53:16 02/19/20 Control Implant Removal completed ROSALES Petersen [address], [place], [address], [facility] 02/18/2023 11:58:58 12/01/19 extraction of wisdom tooth completed Deena Hilliard [facility] 12/05/2020 14:16:29 Imaging Results None recorded. Procedure Notes None recorded. Medical Equipment None Reported. Allergies No known drug allergies Medications Name Sig Start Date Stop Date Status Note LastModified by Organization Details LastModified Time hydrocodone 5 mg-acetamin ophen 325 mg tablet TAKE 1 TABLET BY MOUTH THREE TIMES A DAY NEEDED FOR PAIN 02/17 completed Not Available Not Available Not Available penicillin V potassium 500 mg tablet 01/09 completed Not Available Not Available Not Available metronidazo le 500 mg tablet Take 1 tablet every 12 hours by oral route for 7 days. active Not Available Not Available No t Available cephalexin 500 mg capsule TAKE 1 CAPSULE BY MOUTH THREE TIMES A DAY FOR 7 DAYS 02/17 completed Not Available Not Available Not Available cefuroxime axetil 500 mg tablet TAKE 1 TABLET BY MOUTH TWICE A DAY FOR 14 DAYS 06/24 completed Not Available Not Available Not Available hydroxyzine HCl 10 mg tablet TAKE 1 TABLET BY MOUTH TWICE A DAY TOLERATED *MAY CAUSE DROWSINES S* active Not Available Not Available No t Available ondansetron 4 mg disintegrat ing tablet DISSOLVE 1 TABLET ON THE TONGUE EVERY 6 HOURS NEEDED FOR NAUSEA AND VOMITING 06/24 completed Not Available Not Available Not Available naproxen 500 mg tablet TAKE 1 TABLET BY MOUTH TWICE A DAY NEEDED FOR PAIN 02/17 completed Not Available Not Available Not Available diazepam 5 mg tablet TAKE 1 TABLET BY MOUTH AT BEDTIME NEEDED FOR MUSCLE SPASM 02/17 completed Not Available Not Available Not Available bupropion HCl XL 150 mg 24 hr tablet, extended release TAKE 1 TABLET BY MOUTH EVERY DAY 01/21 completed Not Available Not Available Not Available levonorgest rel 0.15 mg-ethinyl estradiol 30 mcg tablets,3 mos pack(91) TAKE 1 TABLET BY MOUTH EVERY DAY active Not Available Not Available No t Available nitrofurant oin monohydrate /macrocryst als 100 mg capsule TAKE 1 CAPSULE BY MOUTH TWICE A DAY FOR 5 DAYS 01/21 completed Not Available Not Available Not Available L norgest/E estradiol-E estrad 0.15 mg-30 mcg (84)/10 mcg(7) tabs,3mos Take 1 tablet every day by oral route. 02/17 completed Not Available Not Available Not Available Altavera (28) 0.15 mg-0.03 mg tablet TAKE 1 TABLET BY MOUTH EVERY DAY 06/24 completed Not Available Not Available Not Available Gema 0.25 mg-0.035 mg tablet 06/24 completed Not Available Not Available Not Available ID NOW COVID-19 Test Kit DIRECTED 02/17 completed Not Available Not Available Not Available Vitals Date Recorded Body height Body mass index (BMI) Body weight Systolic blood pressure Diastolic blood pressure Provider Name and Address Organization Details Last Updated DateTime 02/17/2023 165.74 cm 27.6 kg/m2 16530.93 g 128 mm[Hg] 78 mm[Hg] [facility] 09:43:35 Date Recorded Body height Body mass index (BMI) Body weight Systolic blood pressure Diastolic blood pressure Provider Name and Address Organization Details Last Updated DateTime 02/18/2023 165.74 cm 27.6 kg/m2 98438.93 g 119 mm[Hg] 79 mm[Hg] [facility] 11:36:08 Date Recorded Body height Body mass index (BMI) Body weight Systolic blood pressure Diastolic blood pressure Provider Name and Address Organization Details Last Updated DateTime 01/22/2024 165.74 cm 28.9 kg/m2 29211.66 g 139 mm[Hg] 83 mm[Hg] Rosemary Gualberto [facility] 4 14:50:28 Date Recorded Body height Body mass index (BMI) Body weight Systolic blood pressure Diastolic blood pressure Provider Name and Address Organization Details Last Updated DateTime 06/24/2024 165.74 cm 28.1 kg/m2 97967.14 g 127 mm[Hg] 83 mm[Hg] CASTILLO Velasquez [facility] 5 09:29:09 Date Recorded Body height Body mass index (BMI) Body weight Systolic blood pressure Diastolic blood pressure Provider Name and Address Organization Details Last Updated DateTime 07/05/2024 165.74 cm 27.7 kg/m2 69862.52 g 139 mm[Hg] 85 mm[Hg] María Hernandez [facility] 5 14:16:41 Social History Question Answer Notes LastModified by Organizat ion Details LastModified Time Tobacco Smoking Status Former Smoker Deena johnston [facility] 12/05/2020 14:16:04 What Is Your Level Of Alcohol Consumption? None [email or web address] Information not available 01/10/2020 Are You Blind Or Do You Have Difficulty Seeing? No [email or web address] Information not available 12/05/2020 What Is Your Level Of Caffeine Consumption? Moderate [email or web address] Information not available 12/05/2020 In The 14 Days Before Symptom Onset, Have You Had Close Contact With A Laboratory-confir med COVID-19 While That Case Was Ill? No [email or web address] Information not available 12/05/2020 In The 14 Days Before Symptom Onset, Have You Had Close Contact With A Person Who Is Under Investigation For COVID-19 While That Person Was Ill? No Information not available 12/05/2020 Have You Been To An Area Known To Be High Risk For COVID-19? No [email or web address] Information not available 12/05/2020 Are You Deaf Or Do You Have Serious Difficulty Hearing? No [email or web address] Information not available 12/05/2020 What Type Of Diet Are You Following? REGULAR [email or web address] Information not available 12/05/2020 Do You Or Have You Ever Used E-cigarettes Or Vape? Current User Of Electronic Cigarettes [email or web address] Information not available 12/05/2020 Do You Use Your Seat Belt Or Car Seat Routinely? Yes [email or web address] Information not available 12/05/2020 Are You Sexually Active? Yes [email or web address] Information not available 06/24/2024 Do You Have Smoke And Carbon Monoxide Detectors In Your Home? Yes [email or web address] Information not available 12/05/2020 Do You Feel Stressed (tense, Restless, Nervous, Or Anxious, Or Unable To Sleep At Night)? [id number] [email or web address] Information not available 12/05/2020 Do You Use Any Illicit Or Recreational Drugs? No [email or web address] Information not available 12/05/2020 Do You Use Sunscreen Routinely? Yes [email or web address] Information not available 12/05/2020 Has Tobacco Cessation Counseling Been Provided? No [email or web address] Information not available 12/05/2020 Do You Or Have You Ever Used Any Other Forms Of Tobacco Or Nicotine? Yes [email or web address] Information not available 12/05/2020 Sex: Unknown Functional Status Question Answer Note LastModified by Organizat ion Details LastModified Time Do you have difficulty walking or climbing stairs? No Information not available 02/17/2023 Are you able to walk? YESWOREST [email or web address] Information not available 12/05/2020 Are you able to care for yourself? Yes Information not available 02/17/2023 Do you have difficulty dressing or bathing? No Information not available 02/17/2023 What is your exercise level? Moderate Information not available 12/05/2020 Mental Status None recorded. Family History Relationship Description Onset Age of this Age Resolved Age Notes LastModified by Organization Details LastModified Time Father Heart disease [email or web address] Not available 12/05 14:15:31 Medical History Condition Response Allergies (Food, seasonal, environmental ) N Other N Breast Cancer N Drug/Latex Allergies/Reactions N Blood Transfusion N Dermatologic Disorders N Lung Disease N Defects or Inherited Disease N Breast Problem N Gestational Diabetes N Hematologic disorders N Anesthesia Complications N History of STI N Deep Vein Thrombosis N Polycystic ovary syndrome N Anxiety Disorder N Autoimmune disease N Arthritis N Infertility N Polyps N Acid Reflux (GERD) N History of abnormal pap Y Cancer N Stroke N Varicosities N Neurologic/Epilepsy N Endometriosis N High Cholesterol N Headaches N Fibromyalgia N Kidney Disease N Heart Problems N Kidney or Bladder Problems N Thyroid Problems N GI Problems N Eating Disorder N Anemia N Art (IVF or FET) N Psychiatric Illness N Ovarian Cancer N Diabetes N Pulmonary (TB, Asthma) N Hepatitis/Liver Disease N No Past Medical History N Eczema N Urinary Tract Infection N Abuse/Domestic Violence N Asthma N Trauma/Violence N Depression/ depression N Heart Disease N Pre-Eclampsia N Hypertension N Osteoporosis N Thrombophilias N Gynecological History Statement/Question Response Abnormal Pap Y Flow Moderate Date of Last Mammogram Date of LMP 06/21/2024 STIs/STDs N HPV Vaccine N Colposcopy Duration of Flow (days) 7 Current Control Method BCPs Are cycles usually normal Y Date of Last Colonoscopy Frequency of Cycle (Q days) 28 Sexually Active? N Menses Monthly Y Date of DEXA bone scan Age of first menstrual cycle 13 Date of Last Pap Smear 06/24/2024 Sexual Problems? N LMP Definite Obstetrics History GPAL:G 0 P 0 0 0 0 Type Value Living 0 Total 0 Past Encounters Encounter ID Performer Location Encounter Start Date Encounter Closed Date Diagnosis/Indication Diagnosis SNOMED-CT Code Diagnosis ICD10 Code Diagnosis Note [id number] Alison Foster CNM [place] [address] [address] 01/10/2020 17:42:26 01/10/2020 18:03:15 Gynecologic examination [id number] Z01.419 Take Calcium with Vitamin D 1200mg daily if not receiving in daily diet. It is strongly advised to have an annual flu shot and up can obtain at most pharmacies . If you have not had a TDap shot in the last 10 years you should obtain one as well. Discussed with patient & provided with informatio n regarding Gardisil vaccine to prevent the 4 strains for HPV that cause cervical cancer if under age 26. Encourage safe sexual practices, to use condoms and limit partners if not already in a monogamous relationsh ip. Do monthly self breast exams. Have mammogram yearly or every other year depending on family history. BRCA testing is now available for patients with strong genetic history of female cancer. If interested contact the office. Engage in daily exercise of low impact aerobic exercise 45-60 minutes 4-5 times weekly. Avoid tobacco and illicit drugs as well as using moderation with alcohol intake less than 1-2 8 oz beverages daily. This lifestyle behavior pattern will lead to less health conditions and longer life span. If BMI greater than 25 weight watchers or dietary consult advised. Happy with ocp and would like to continue. Consent read and signed. Strongly encouraged smoking cessation. Pt has decreased and is down to 4 cig per day. Patient received above instructio ns, and questions have been answered. If you have any questions please call or respond to this email. Patient was made aware of the patient portal and may obtain a paper copy of today's plan if desired. [id number] Alison Foster CNM [place] [address],[place] [address] 12/05/2020 13:54:21 12/05/2020 14:23:26 Surveillance of oral contraception [id number] Z30.41 Pt is happy with ocp and would like to continue. She is moving next month and wanted to make sure she had refills until she is establishe d with a new provider. She will try to have annual wellness with new provider this fall. [id number] ROSALES Petersen [place] [address],[place] [address] 02/17/2023 09:26:16 02/17/2023 10:47:17 Gynecologic examination [id number] Z01.419 Take Calcium with Vitamin D 1200mg daily if not receiving in daily diet. It is strongly advised to have an annual flu shot and up can obtain at most pharmacies . If you have not had a TDap shot in the last 10 years you should obtain one as well. Discussed with patient & provided with informatio n regarding Gardisil vaccine to prevent the 4 strains for HPV that cause cervical cancer if under age 26. Encourage safe sexual practices, to use condoms and limit partners if not already in a monogamous relationsh ip. Do monthly self breast exams. Have mammogram yearly or every other year depending on family history. BRCA testing is now available for patients with strong genetic history of female cancer. If interested contact the office. Engage in daily exercise of low impact aerobic exercise 45-60 minutes 4-5 times weekly. Avoid tobacco and illicit drugs as well as using moderation with alcohol intake less than 1-2 8 oz beverages daily. This lifestyle behavior pattern will lead to less health conditions and longer life span. If BMI greater than 25 weight watchers or dietary consult advised. Patient received above instructio ns, and questions have been answered. If you have any questions please call or respond to this email. Patient was made aware of the patient portal and may obtain a paper copy of today's plan if desired. WWEBC - nexplanon, inserted esi res removal, would like to start an OCPr/b/a discussed. She will RTC for nexplanon removalno hx of abnormal papslast pap 06/2021 - normal per ptnext pap due testing declinedUT D with PCP for routine labsRTC for nexplanon removal Contracept ion care management [id number] Z30.9 [id number] ROSALES Petersen [place] [address] [address] 02/18/2023 11:11:25 02/18/2023 12:06:43 Removal of subcutaneous contraceptive [id number] Z30.46 nexplanon removed (see procedure note)pt tolerated procedure well Discussed all control options in great detail. Pt would like to start ocp. She is aware of the risks and benefits. She does not have any medical condition that is contraindi cated with the use of estrogen containing control. Pt will start her pills today. She is aware it is not effective for control the first month. She is also aware of the importance of taking at the same time every day. Encouraged use of condoms as the pill does not protect against STD's. Will return in 3 months for med check. Consent was read and signed. Pt verbalized understand ing.rx sentmed check in 3-4 months Contracept ion care management [id number] Z30.9 Screening procedure 2012 5006 Z13.9 [id number] Janes Gaxiola MD [place] [address],[place] [address] 01/22/2024 14:34:02 01/22/2024 16:30:45 Lesion of cervix [id number] N88.9 28-year-ol d female presents for cervical lesion. She can palpate a cervical lesion. She feels a mass on the cervix. It is about the size a Grape. Cervix was examined. 5 mm area nabothian cyst was observed in the anterior lip of the cervix. It was palpated and feels round, smooth, mobile. It is clearly a nabothian cyst. The patient was given reassuranc e and I explained her a nabothian cyst is. Spent over 20 minutes on her care. [id number] ROSALES Petersen [place] [address],[place] [address] 06/24/2024 09:18:53 06/30/2024 10:58:19 Gynecologic examination [id number] Z01.419 WWEBC - OCP, r/b/a reviewed, refills sentPap - done todaySTI screen - declinedRo utine labs - UTD/PCPRTC in 1 yr or sooner if needed It is strongly advised to have an annual flu shot and up can obtain at most pharmacies . If you have not had a TDap shot in the last 10 years you should obtain one as well. Discussed with patient & provided with informatio n regarding the HPV vaccine if applicable . Encourage safe sexual practices, to use condoms and limit partners if not already in a monogamous relationsh ip. Do monthly self breast exams. BRCA testing is now available for patients with strong genetic history of female cancer. If interested contact the office. Engage in regular exercise. Avoid tobacco and illicit drugs. This lifestyle behavior pattern will lead to less health conditions and longer life span. If BMI greater than 25 dietary consult advised. Questions answered. [facility] ion care management [id number] Z30.9 Rectal mass [id number] R1 9.[address] at ED visit 4ref erral to GI for f/u and pelvic MRI [id number] COLLETTE ALVARES MD [place] [address] [address] 07/05/2024 14:02:36 07/05/2024 14:40:46 Low grade squamous intraepithelial lesion on cervical Papanicolaou smear [id number] 9105 R87.612 -- no hx of abnormal pap smears- colposcopy performed today without issue- discussed starting gardasil vaccine series as patient has not received prior- will follow up on results as available Screening procedure 2012 5006 Z13.9 Health Concerns Section Related Observation LastModified by Organization Detai ls LastModified Time None Recorded Concern Status LastModified by Organization Details LastModified Time None Recorded Advance Directives Directive None Recorded Payers Encounter Date Sequence Insurance Name Policy Number Policy Burns Covered Member ID Burns Member ID Guarantor Name 02/17/2023 1 [facility] Suzan Canales [id number] Suzanjohnathan Canales 02/18/2023 1 [facility] Suzan Canales [id number] Suzan Canales 01/22/[address] [place] [address] [id number] Suzan Canales [id number] Suzan Canales 06/24/2024 1 [facility] [id number] Suzan Canales [id number] Suzanjohnathan Canalse 07/05/[address] [place] [address] [id number] Suzan Canales [id number] Suzan Canales Notes Date Note Type Note Provider Name and Address Organization Details Recorded Time 02/17/2023 text/html Annual GYNReport ed bypatient.Menstrual cycle:Normal menses Urinary symptoms:No hematuria; No incontinence Vulva:No genital lesion Vagina:Normal vaginal discharge Breast:No breast pain; No breast lump; No nipple discharge Current Contraception:Subderm al contraceptive implant; nexplanon inserted 06/2020. Has had a few episodes of hives near nexplanon site over the last year. None currently. Desires removal Sexual complaints:No sexual complaints; No pain during intercourse; Normal libido Menopausal Symptoms:No menopausal symptoms; Normal vaginal lubrication Psychological symptoms:No depression; No anxiety; No PMDD Preventive measures:Encourage self breast examination; Encourage regular exercise; Encourage no tobacco use; Encourage regular mammograms starting age 40Notes:denies hx of DVT/PE, HTN, Stroke/WV, cancer, liver disease, or migraine with aurashe is a Non smoker ROSALES Petersen [address], [place], [address], [facility] 02/17/2023 10:46:29 02/18/2023 text/html 27yopresents for nexplanon removalwould like nexplanon removed and to start back on OCP she was on previouslydenies hx of DVT/PE, HTN, Stroke/WV, cancer, liver disease, or migraine with aurashe is a non smoker ROSALES Petersen [address], [place], [address], [facility] 02/18/2023 12:00:51 01/22/2024 text/html 28-year-old herman nunez presents for cervical lesion. She can palpate a cervical lesion. She feels a mass on the cervix. It is about the size a Grape. Cervix was examined. 5 mm area nabothian cyst was observed in the anterior lip of the cervix. It was palpated and feels round, smooth, mobile. It is clearly a nabothian cyst. The patient was given reassurance and I explained her a nabothian cyst is. Spent over 20 minutes on her care. Janes Gaxiola MD [address], [place], [address], [facility] 01/22/2024 16:18:19 06/24/2024 text/html Annual GYNReport ed bypatient.Menstrual cycle:Normal menses Urinary symptoms:No hematuria; No incontinence Vulva:No genital lesion Vagina:Normal vaginal discharge Breast:No breast pain; No breast lump; No nipple discharge Current Contraception:Satisfi ed with current contraception; Oral contraceptives Sexual complaints:No sexual complaints; No pain during intercourse; Normal libido Menopausal Symptoms:No menopausal symptoms; Normal vaginal lubrication Psychological symptoms:No depression; No anxiety; No PMDD Preventive measures:Encourage self breast examination; Encourage regular exercise; Encourage no tobacco use; Encourage regular mammograms starting age 40Notes:29yo G0 wweBC - OCP (prefers 3 month OCP)last pap 2020 : rekha was seen in ED 05/2024 abdominal pain. Diagnosed with UTI. CT done of abdomen/pelvic showed : Hyperdense mass in the left ischial rectal fat. Pelvic MRI recommended, which can be performed on a nonemergent basis. denies h/o DVT/PE, HTN, Stroke/WV, cancer, liver disease, or migraine with aurashe is a tobacco smoker, working on quitting ROSALES Petersen [address], [place], [address], [facility] 06/29/2024 12:45:34 07/05/2024 text/html Patient presents for colposcopy indicated for LSIL on recent pap. María johnston, [facility] 07/05/2024 15:29:14 OBGyn Episode No OBEpisode recorded.
[2024-09-30 16:22] VITALS: BP 151/94; PULSE 93; RESP 16; TEMP 37.2; O2SAT 100
--- NOTE | 2024-09-30 16:57 | ED_ITS ---
HPI - Female Genitourinary General Chief complaint: Urogenital-Female Stated complaint: Urinary Problem Time Seen by Provider: 09/30/24 16:45 Source: patient and RN notes reviewed Mode of arrival: ambulatory Limitations: no limitations History of Present Illness HPI Narrative: 29-year-old female presents Express Care complaining of urinary symptoms for for 4 days. Patient stated it started with right-sided flank pain. Since then she has noticed foul-smelling urine reporting body aches, chills, nausea as well. Patient denies any blood in her urine. Denies any burning with urination increased frequency or hesitancy. Patient has had a history of a kidney infection she reports. Denies any history of kidney stones. Patient denies any abdominal pain, vaginal discharge, or any concerns for STIs. Related Data Home Medications ?Medication ?Instructions ?Recorded ?Confirmed ?Last Taken ?Type levonorgestrel 0.15 mg-ethinyl 1 tablet PO DAILY 05/13/23 07/13/23 Unknown History estradiol 0.03 mg tablet (Altavera (28)) cholecalciferol (vitamin D3) 1,250 09/30/24 Unknown History mcg (50,000 unit) capsule rosuvastatin 40 mg tablet mg 09/30/24 Unknown History Allergies Allergy/AdvReac Type Severity Reaction Status Date / Time No Known Allergies Allergy Verified 09/30/24 16:20 Review of Systems Review of Systems: CONSTITUTIONAL: Denies fever, or sweats. Positive for body aches and chills. EYES: Denies visual changes, redness, or discharge. ENT: Denies rhinorrhea, congestion, sore throat, or otalgia. CARDIOVASCULAR: Denies chest pain, palpitations, syncope, or edema. RESPIRATORY: Denies cough or dyspnea. GASTROINTESTINAL: Denies abdominal pain, vomiting, or diarrhea. Positive for nausea. GENITOURINARY: Positive for foul-smelling urine and flank pain. Denies dysuria, vaginal discharge, or hematuria. SKIN: Denies rash or itching. MUSCULOSKELETAL: Denies back pain, joint pain, or myalgia. NEUROLOGIC: Denies headache, numbness, or weakness. PSYCHIATRIC: Denies anxiety or depression. All other systems reviewed are negative, except as documented in HPI. PMFSH Comments At the time of my signature, I reviewed and agree with the nursing past medical, surgical, social, and family history. There is no relevant family history pertinent to the patient complaint. Exam Narrative: GENERAL: This is a well-nourished, well-developed adult, in no apparent distress. They are non ill-appearing, nontoxic appearing. HEAD: normocephalic, atraumatic. EYES: Sclera clear/white. Conjunctiva normal. Vision is grossly intact. Extraocular movements intact EARS: External ears normal. Hearing grossly intact. NOSE: External nose normal THROAT: Mucous membranes moist NECK: Normal range of motion CARDIOVASCULAR: Regular rate and rhythm without murmurs, gallops, or rubs. RESPIRATORY: Clear to auscultation. Breath sounds equal bilaterally. No wheezes, rales, or rhonchi. GASTROINTESTINAL: Abdomen soft, flat, non-tender, nondistended. Bowel sounds are active. No hepato-splenomegaly, or palpable masses. No guarding. No rebound tenderness. SKIN: warm, Dry, intact with no suspicious lesions or rash, good texture and turgor. NEURO: awake, alert, and oriented to person, place and time. There were no obvious focal neurologic abnormalities. EXTREMITIES: No joint tenderness, effusion, or edema noted. BACK: Nontender without deformity. Right CVA tenderness present. No left CVA tenderness. Course Course Emergency Course: Portions of this record may have been created with voice recognition software Level of Care: Express Care Visit Vital Signs Vital signs: Vital Signs Temperature 98.9 F 09/30/24 16:22 Pulse Rate 93 09/30/24 16:22 Respiratory Rate 16 09/30/24 16:22 Blood Pressure 151/94 H 09/30/24 16:22 Pulse Oximetry 100 09/30/24 16:22 Oxygen Delivery Room Air 09/30/24 16:22 Temperature 98.9 F 09/30/24 16:22 Pulse Rate 93 09/30/24 16:22 Respiratory Rate 16 09/30/24 16:22 Blood Pressure 151/94 H 09/30/24 16:22 Pulse Oximetry 100 09/30/24 16:22 Oxygen Delivery Room Air 09/30/24 16:22 Reviewed MDM - Female Genitourinary MDM Narrative Medical decision making narrative: Patient's symptoms are concerning for a pyelonephritis. Patient urine dipstick is consistent with the urinary tract infection. Urine culture pending. Patient is nontoxic appearing or ill-appearing. Patient was given a shot of ceftriaxone. Patient will go home on Bactrim. There is no blood in the patient's urine. Offered patient a KUB to assess for any kidney stones and she declined. Discussed physical exam findings. Advised supportive measures and signs/symptoms to go to the ER. Pt is appropriate for outpt treatment and f/u. Differential Diagnosis Differential diagnosis: Likely urinary tract infection, cystitis and other (Pyelonephritis) Lab Data Attestation: I reviewed the patient's lab results. Critical Care Time Critical Care Time Critical Care Time: No Discharge Plan Discharge Clinical Impression: Urinary tract infection Patient Disposition: Home Condition: Stable Instructions: Antibiotic Form, Kidney Infection (ED) Additional Instructions: Take the antibiotic as prescribed. Finished antibiotics completely if you start to feel better. Your given a shot of ceftriaxone today. The urine will be sent of for a culture to identify what type of bacteria is causing your infection. If the culture shows that the antibiotic will not get rid of your infection, you will be notified and a new antibiotic will be called in for you. Increase water intake you will need to follow up with your PCP, call to schedule an appointment. If you develop fevers, or worsening abdominal pain, persistent vomiting, or any other concerns please go to the ER immediately. Patient Language: Togolese Prescriptions: New sulfamethoxazole-trimethoprim [Bactrim DS] 800-160 mg tablet 1 tablet PO Q12H 7 Days Qty: 14 0RF No Action rosuvastatin 40 mg tablet cholecalciferol (vitamin D3) 1,250 mcg (50,000 unit) capsule levonorgestrel-ethinyl estrad [Altavera (28)] 0.15-0.03 mg tablet 1 tablet PO DAILY Follow-up/Referrals: Kacie,MD Janes [Primary Care Provider] - Time of Disposition: 16:55
[2024-09-30] MEDS: cefTRIAXone 1 GM, LIDOCAINE 1% LOCAL INJ 2.1 ML IM (17:03)
[2024-09-30 17:11] LABS: EDUAAPPEAR Clear; EDUABILI Negative (Negative); EDUABLOOD Negative (Negative); EDUACOLOR1 Yellow; EDUAGLUCOSE Negative (Negative); EDUAKETONE Negative (Negative); EDUALEUKO 1+ (Negative); EDUANITRATE Negative (Negative); EDUAPH 8.5; EDUAPROTEIN 2+ (Negative)
== END 2024-09-30 17:29 | disposition home or self-care (01) ==
PROVIDERS: PCP Internal Medicine
DX: N39.0 Urinary tract infection, site not specified (principal)
CPT/HCPCS: 81003; 87086; 87186; 99213; G0463; J0696; J2003

== ENCOUNTER 2024-10-09 09:32 | Outpatient (CLI) | payer OTHER, SELFPAY ==
--- NOTE | ~2024-10-09 | MR_ITS ---
MRI of the left knee Clinical history: Pain Technique: Coronal proton density and proton density-weighted images, sagittal proton-density and T2 fat-sat images, and axial proton-density fat-saturated images were acquired. Findings: Anterior and posterior cruciate ligaments are intact. Medial collateral ligament and the la teral collateral ligament complex are intact. Popliteus tendon is intact. Medial and lateral menisci are intact, without evidence of tear. Articular cartilage is well preserved throughout the knee. Bone marrow signals are unremarkable. Extensor mechanism is intact. No significant joint effusion or Lozano's cyst. Impression: No significant abnormality. Reviewed, dictated and finalized at location . Impression: No significant abnormality.
--- OUTSIDE RECORDS SUMMARY | 2024-10-09 09:38 | XMS_ITS | Clinical Summary ---
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 Respiratory Rate 16 05/13/2020 5:37 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
--- OUTSIDE RECORDS SUMMARY | 2024-10-09 09:38 | XMS_ITS | Data Portability ---
Author Organization [place] [employer], Main Office Address [address] [place] [address] Care Team Providers Care Larry Operator Name Role Phone JANES NÚÑEZ Primary Care Provider [phone] JANES NÚÑEZ Referring Provider Assessment Encounter Date Assessment Date [...] schedule apt for L knee. THanks 2024 [facility], [address], [place], [address], 10/06/2024 14:20:04 Procedures None recorded. Surgeries None recorded. Imaging XR, knee, 3 view 2024 [facility], [address], [place], [address], 09/28/2024 23:07:25 MRI, knee, w/o contrast - Please provide pt with disc to bring to apt. Thanks [address] [facility], [address], [address], [place], [address], 09/28/2024 23:07:25 Medication Orders meloxicam 15 mg tablet 2024 [id number], [address], [place], [address], 09/28/2024 23:07:25 Patient TargetsNo targets recorded. Patient InstructionsNo instructions recorded. 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 Thank you. Referring Physician: Janes Núñez, Internal Medicine, Encounter Date: 08/11/2024 Orthopedic Surgeon Referral for Pain of left knee joint Please call patient to schedule an appointment. Thank you. Referring Physician: Janes Núñez, Internal Medicine, Encounter Date: 08/11/2024 Physical Therapist Referral for Pain of left knee joint L knee Please contact pt to schedule apt for L knee. THanks Referring Physician: Grupo Carrillo, Orthopedic Surgery, Encounter Date: 09/15/2024 Results Created Date Observation Date Name Description Value Unit Range Abnormal Flag Note LastModifiedBy Organization Detail LastModifiedTime 05/13/20 23 05/13/2023 XR, ankle No observ ation record ed. [email or web address] [facility] [address], [place], [address], 09/09/2024 10:57:57 09/16/19 25 XR, knee, 3 view No observ ation record ed. [email or web address] [facility] [address], [place], [address], 09/15/2024 15:33:59 Result Notes None recorded. Problems Name Problem SNOMED Code Status Onset Date Resolution Date Notes Provider Name and Address Organization Details Recorded Time Shoulder joint pain 219553826 Active Not Available [employer] 3 15:42:13 Vitamin D deficiency 27910221 Active 2021 Not Available [employer] 3 15:42:13 Hyperlipid emia 40481326 Active 2021 Not Available [employer] 3 15:42:13 Vasovagal syncope 540010321 Active 2024 Janes kwon MD [address] [facility], [place], [address] , [facility] 5 14:14:48 Pain of left knee joint 3689773584998 07 Active 2024 Janes kwon MD [address] [facility], [place], [address] , [facility] 5 17:57:54 Nicotine dependence 41060358 Active 2024 Sunitha Fleming MA null, [facility] 5 13:50:28 Problem Notes None recorded. Procedures Surgical History Date Name Laterality Status Provider Name and Address Organization Details Recorded Time [facility] completed AGNIESZKA Delgado [facility] [email or web address] [facility] 08/11/2024 17:31:48 removal of mole of skin by excision completed AGNIESZKA Delgado [facility] [employer] [facility] 08/11/2024 17:32:03 Imaging Results Imaging Date Name Status LastModified by Organiz ation Details LastModified Time 05/13/2023 XR, ankle completed [email or web address] [facility] [address], [place], [address], 09/09/2024 10:57:57 09/15/2024 XR, knee, 3 view completed [email or web address] [facility] [address], [place], [address], 09/15/2024 15:33:59 Procedure Notes None recorded. Medical Equipment None Reported. Allergies Allergen ID Allergen Name Allergen Category Reaction Reaction Severity Criticality Documentation Date Start Date Code Code System Note Provider Name and Address Organization Details Recorded Time 46176 adhesive tape environme nt,medica tion rash Not available Not available 08/11/2024 01962 UNK AGNIESZKA Delgado [place] Deysi [facility] [email or web address] [facility] 17:21:00 Medications Name Sig Start [...] Not Available Not Available No t Available sulfamethox azole 800 mg-trimetho prim 160 mg tablet TAKE 1 TABLET BY MOUTH [...] Not Available Not Available No t Available levonorgest rel 0.15 mg-ethinyl estradiol 30 [...] % 98 % 99 /min 96.8 [degF] 89980.2 2 g 110 mm[Hg] 70 mm[Hg] Not Available [employer] 3 15:41:45 Date Recorded Body height Body mass index (BMI) Body weight Body temperature Heart rate Systolic blood pressure Diastolic blood pressure Provider Name and Address Organization Details Last Updated DateTime 5 167.64 cm 25.8 kg/m2 66627.7 8 g 98.3 [degF] 84 /min 120 mm[Hg] 86 mm[Hg] AGNIESZKA Delgado [place] [facility] [email or web address] [facility] 5 17:33:57 Date Recorded Body height Body mass index (BMI) Body weight Pain severity - 0-10 verbal numeric rating [Score] - Reported Provider Name and Address Organization Details Last Updated DateTime 09/15/2024 167.64 cm 26.6 kg/m2 17790.74 g 4 [employer] Victor Manuel AGNIESZKA [facility] 09/15/2024 15:32:26 Social History Question Answer Notes LastModified by Organizat ion Details LastModified Time Tobacco Smoking Status Never Smoker Sussy Cagle AGNIESZKA ivckie, [facility] 08/11/2024 17:29:21 Do You Have An Advance Directive? No Information not available 08/11/2024 What Is Your Level Of Alcohol Consumption? Occasional Information not available 08/11/2024 What Is Your Level Of Caffeine Consumption? Heavy Information not available 08/11/2024 In The 14 Days Before Symptom Onset, Have You Had Close Contact With A Laboratory-confir med COVID-19 While That Case Was Ill? No [id number] Information not available 07/31/2022 In The 14 Days Before Symptom Onset, Have You Had Close Contact With A Person Who Is Under Investigation For COVID-19 While That Person Was Ill? No [id number] Information not available 07/31/2022 Are You Currently Employed? Yes Information not available 08/11/2024 What Type Of Diet Are You Following? REGULAR Information not available 08/11/2024 Which Illicit Or Recreational Drugs Have You Used? Marijuana Information not available 08/11/2024 What Is The Highest Grade Or Level Of School You Have Completed Or The Highest Degree You Have Received? 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 Unknown Information not available 08/11/2024 Are There Any Guns Present In Your Home? No Information not available 08/11/2024 Where Do You Live? SingleLevelHouse Information not available 08/11/2024 Do You Have A Medical Power Of Photovoltaic Technician? No Information not available 08/11/2024 What Was [...] Anxious, Or Unable To Sleep At Night)? [id number] Information not available 08/11/2024 Do You Use Any Illicit Or Recreational Drugs? Yes Information not available 08/11/2024 Has Tobacco Cessation Counseling Been Provided? No N/a Information not available 08/11/2024 Have You Recently Traveled Abroad? No [id number] Information not available 07/31/2022 Have You Used [...] Not available 2024 17:39:15 Mother Autoimmune disease [email or web address] Not available 2024 17:39:43 Mother Hyperlipidem ia [email or web address] Not available 2024 17:39:59 Mother Vitamin D deficiency [email or web address] Not available 08/11 17:40:21 Mother Chronic obstructive pulmonary disease [email or web address] Not available 2024 17:40:53 Maternal Grandmother Hyperlipidem ia [email or web address] Not available 2024 17:41:46 Maternal Grandmother Hypertensive disorder [email or web address] Not available 2024 17:42:03 Maternal Grandmother Hypothyroidi sm [email or web address] Not available 2024 17:42:25 Maternal Grandmother Coronary arterioscler osis [email or web address] Not available 2024 17:42:42 Maternal Grandmother Vitamin D deficiency [email or web address] Not available 08/11 17:42:58 Maternal Grandmother Cardiac pacemaker in situ [email or web address] Not available 2024 17:43:58 Maternal Grandmother Myocardial infarction [email or web address] Not available 08/11 17:44:24 Medical History Condition Response NERVE DISEASE N BLINDNESS N RHEUMATIC FEVER N KIDNEY STONES N BLADDER PROBLEMS N MRSA N OTHER # 1 N POLIO N LUNG DISEASE/DISORDER N HISTORY OF DRUG ABUSE N RADIATION / CHEMOTHERAPY N COPD N Other # 2 N BLOOD DISEASES [...] DIVERTICULITIS N SLEEP APNEA N CHICKENPOX N ALLERGIES/HAYFEVER N BACK INJECTIONS N INFECTIOUS DISEASE N PROSTATE N HEART ARRHYTHMIA N ESRD N INSOMNIA N HIGH CHOLESTEROL / HYPERLIPIDEMIA N EYE PROBLEMS N HYPERTHYROIDISM N PVD N EDEMA N CHRONIC PAIN SYNDROME N HYPOTHYROIDISM N CAROTID BLOCKAGE N CONSTIPATION N BACK / NECK PROBLEMS N ATHEROSCLEROSIS [...] N ALZHEIMER'S DISEASE N Brain Problems N DEMENTIA N HERPES N SEIZURES/EPILEPSY N HEADACHES/MIGRAINES N VASCULAR DISEASE N PACEMAKER N DIZZINESS N HEART DISEASE/HEART PROBLEMS N KIDNEY DISEASE N MULTIPLE SCLEROSIS N NEUROPSYCHOLOGICAL N CANCER: SPECIFY N CARDIAC ARRHYTHMIA N ATRIAL FIBRILLATION N Gall Stones N PULMONARY EMBOLISM N AUTOIMMUNE DISEASE N Gynecological HistoryNo gynecological history recorded. Obstetrics History GPAL:G 0 P 0 0 0 0 Immunizations Vaccine Type Date Status Note Provider Nam e and Address Organization Details Recorded Time Influenza, split virus, trivalent, PF 08/11/2024 completed AGNIESZKA Delgado [employer] [facility] [employer] 08/11/2024 18:05:14 IPV 10/01/1999 completed AGNIESZKA Delgado, [employer] 08/11/2024 17:23:02 Influenza, MDCK, quadrivalent, PF 01/29/2023 completed AGNIESZKA Delgado, [employer] [facility] [employer] 08/11/2024 17:23:02 MMR 06/09/1996 completed AGNIESZKA Delgado, [employer] 08/11/2024 17:23:02 MMR 01/19/2001 AGNIESZKA Real [place] [facility] 08/11/2024 17:23:02 Tdap 12/09/2006 completed Sussy Davenport, RMA null, [place] [facility] 08/11/2024 17:23:02 varicella 11/28/2003 completed Sussy Davenport, RMA null, [place] [facility] 08/11/2024 17:23:02 varicella 12/09/2006 completed Sussy Gurjit, RMA null, [place] [facility] 08/11/2024 17:23:02 OPV 1995 completed Sussy Davenport, RMA null, [place] [facility] 08/11/2024 17:23:02 OPV 1995 completed Sussy Gurjit, RMA null, [place] [facility] 08/11/2024 17:23:02 OPV 1995 completed Sussy Davenport, RMA null, [facility] 08/11/2024 17:23:02 Hep B, adolescent or pediatric 06/09/1996 completed Sussy Gurjit, RMA null, [place] [facility] 08/11/2024 17:23:02 Hep B, adolescent or pediatric 1995 completed Sussy Davenport, RMA null, [facility] 08/11/2024 17:23:02 Hep B, adolescent or pediatric 1995 completed Sussy Gurjit, RMA null, [facility] 08/11/2024 17:23:02 Hib (PRP-OMP) 1995 completed Sussy Needha m, RMA null, [place] [facility] 08/11/2024 17:23:02 Hib (PRP-OMP) 10/01/1999 completed Sussy Needha m, RMA null, [place] [facility] 08/11/2024 17:23:02 Hib (PRP-OMP) 1995 completed Sussy Needha m, RMA null, [place] [facility] 08/11/2024 17:23:02 Hib (PRP-OMP) 1995 completed Sussy Needha m, RMA null, [place] [facility] 08/11/2024 17:23:02 DTaP 1995 completed Sussy Cagle, RMA null, [place] [facility] 08/11/2024 17:23:02 DTaP 10/01/1999 completed Sussy Cagle, RMA null, [place] [facility] 08/11/2024 17:23:02 DTaP 1995 completed Sussy Cagle RMA null, [place] [facility] 08/11/2024 17:23:02 DTaP 1995 completed Sussy Cagle, RMA null, [place] [facility] 08/11/2024 17:23:02 Tdap 11/04/2019 completed Not Available [facility] 07/31/2022 15:44:09 Past Encounters Encounter ID Performer Location Encounter Start Date Encounter Closed Date Diagnosis/Indication Diagnosis SNOMED-CT Code Diagnosis ICD10 Code Diagnosis Note [id number] Janes kwon MD [facility] Internal Med [facility] [address] [place] [address] , [place] [address] 02/19/2021 00:00:00 03/26/2021 18:01:00 [id number] Janes kwon MD [facility] Primary Care [facility] [address] [place] [address] 08/11/2024 17:11:20 08/11/2024 18:01:14 Screening - NAD 352017694 Z13.9 PAP: Get this done Get yearly flu shot, get tdap if not doneCan do COVID 19 boosters RTC in 3 months, do labs, ER if worse, she did verbalize her understand ing of the above Hyperlipidemia 52994094 E78.5 Not on any medGet labs Vitamin D deficiency 347 59614 E55.9 Gynecologi c examination 16883669 Z01.419 Pain of le ft knee joint 3820713015 20492 M25.562 Get a referral to ortho Administra tion of influenza vaccine 36783090 Z23 [id number] Grupo Carrillo MD [facility] Ortho [facility] [address] [place] [address] 09/15/2024 15:10:31 09/15/2024 16:23:28 Pain of left knee joint 1259367909 91398 M25.562 Health Concerns Section Related Observation LastModified by Organization Omar alexander LastModified Time None Recorded Concern Status LastModified by Organization Details LastModified Time None Recorded Advance Directives Directive N: Payers Encounter Date Sequence Insurance Name Policy Number Policy Burns Covered Member ID Burns Member ID Guarantor Name 09/15/2024 1 [facility] [id number] Suzan Canales [id number] Suzan Canales OBGyn Episode No OBEpisode recorded.
--- OUTSIDE RECORDS SUMMARY | 2024-10-09 09:38 | XMS_ITS | Clinical Summary ---
Author Organization [facility] [employer] Address [address] [place] [address] Care Team Providers Care Snuff Drier Name Role Phone Luis Goins MD Unavailable Luis Goins MD Unavailable Luis Goins MD Primary Care Provider [phone] Source Comments [facility] [employer],non-owned Affiliates and Associated Physician Practices is amultiple site organization consisting of ambulatory clinics and hospital sitesin [place] and [place]. This disclosure is being madepursuant to the Care Everywhere program and may not contain all information available regarding this patient. Last updated 18.[facility] [employer] Allergies No known active allergies Medications * [...] on file Legal Sex Female 8:37 AM RESEARCH ATTORNEY Gender Identity Not on file Sexual Orientation Not on file Last Filed Vital Signs Vital Sign Reading Time Taken Comments Blood Pressure 114/80 05/17/2024 9:53 AM RESEARCH ATTORNEY Pulse 86 05/17/2024 9:53 AM RESEARCH ATTORNEY Temperature 36.6 C (97.8 F) 05/17/2024 7:35 AM RESEARCH ATTORNEY Respiratory Rate 16 05/17/2024 9:53 AM RESEARCH ATTORNEY Oxygen Saturation 98% 05/17/2024 9:53 AM RESEARCH ATTORNEY Inhaled Oxygen Concentration - - Weight 77.1 kg (170 lb) 05/17/2024 7:35 AM RESEARCH ATTORNEY Height 167.6 cm (5' 6 ) 05/17/2024 7:35 AM RESEARCH ATTORNEY Body Mass Index 27.44 05/17/2024 7:35 AM RESEARCH ATTORNEY Plan of Treatment Health Maintenance Due Date [...] patient's age to complete this topic Insurance [facility] Care Teams Snuff Drier Relationship Specialty Start Date End Date Luis Goins MD [address] [place] [address] PCP - General Family Medicine 05/16/24 Luis Goins MD [address] [place] [address] Family Medicine 11/22/19 Luis Goins MD [address] [place] [address] Family Medicine 12/15/16
--- OUTSIDE RECORDS SUMMARY | 2024-10-09 09:38 | XMS_ITS | Data Portability ---
Author Organization [facility] Address [address] [place] [place] [address] [place] [address] Assessment Encounter Date Assessment Date Assessment LastModified by Organization Details LastModified Time 02/17/2023 02/17/2023 Annual gynecological exam performed. Patient will come back in a year unless there are new symptoms. [email or web address] Not available 02/17/2023 09:43:16 06/24/2024 06/24/2024 Annual gynecological exam performed. Patient will come back in a year unless there are new symptoms. [email or web address] Not available 06/24/2024 09:25:43 Plan of Treatment Reminders Order Date Submit Date Provider Last Modified By Organization Details Last Modified Time Details Appointments None recorded. Lab test, urine 2024 025 [email or web address] [address], [address], [place], [address], 5 15:29:02 test, urine 2022 023 whit [facility], [address], [place], [address], 3 11:57:41 Referral gastroenter ologist referral [address] [facility], [address], [address], [place], [address], 5 11:22:01 Procedures None recorded. Surgeries None recorded. Imaging None recorded. Medication Orders levonorgest rel 0.15 mg-ethinyl estradiol 30 mcg tablets,3 mos pack(91) 2024 025 [facility][id number], [address], [place], [address], 09:49:43 levonorgest rel 0.15 mg-ethinyl estradiol 0.03 mg tablet 2022 023 whit [facility] #[id number], [address], [place], [place], [id number], 09:49:36 Patient TargetsNo targets recorded. 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 Referral for Rectal mass Referring Physician: Bhavana Eid, STAGE SET DESIGNER, Encounter Date: 06/24/2024 Results Created Date Observation Date Name Description Value Unit Range Abnormal Flag Note LastModifiedBy Organization Detail LastModifiedTime 02/19/2002/18/2023 pregn adamaris test, urine HCG negati ve Not Available [address], [place], [address], 02/18/2023 11:55:40 01/22/20 24 01/22/2024 CT/GC AND TRICH OMONA S VAGIN KINDRA (RRNA ), SWAB chlamydia trachomatis, PCR Negati ve negati ve Not Available [facility] (Lab) [address], [place], [address], 01/23/2024 12:42:56 01/22/20 24 01/22/2024 CT/GC AND TRICH OMONA S VAGIN KINDRA (RRNA ), SWAB neisseria gonorrhoeae, PCR Negati ve negati ve Not Available [facility] (Lab) [address], [place], [address], 01/23/2024 12:42:56 01/22/20 24 01/22/2024 CT/GC AND TRICH OMONA S VAGIN KINDRA (RRNA ), SWAB trichomonas vaginalis ribosomal RNA (rrna) Negati ve negati ve Not Available [facility] (Lab) [address] [facility], [place], [address], 01/23/2024 12:42:56 01/22/20 24 01/22/2024 HEPAT ITIS B SURFA CE ANTIG EN hepatitis B surface antigen Non-re active non-re active This assay was perfo rmed using [employer] ratio n reage nts and test kits. Value s obtai james with other assay metho ds or kits canno t be used inter hunter eably . Not Available [facility] (Lab) [address] [facility], [place], [address], 01/23/2024 13:01:53 01/22/20 24 01/22/2024 HEPAT ITIS C ANTIB EDER SCREE N, REFLE X TO CONFI RMATI ON hepatitis C antibody Non-re active non-re active Antib odies to HCV Not Detec mona, does not exclu de the possi bilit y of expos ure to HCV. Not Available [facility] (Lab) [address] [facility], [place], [address], 01/23/2024 13:01:53 01/22/20 24 01/22/2024 HIV 1/2 ANTIG EN/AN TIBOD Y, REFLE X CONFI RMATI ON HIV antigen/anti body Nonrea ctive nonrea ctive HIV-1 antig en and HIV-1 /HIV- 2 antib odies were not detec mona. No labor atory evide nce of HIV infec tion. Not Available [facility] (Lab) [address] [facility], [place], [address], 01/23/2024 13:01:54 01/22/20 24 01/22/2024 RPR SCREE N, REFLE X TITER /CONF IRMAT ION RPR screen Nonrea ctive nonrea ctive Not Available [facility] (Lab) [address] [place], [address], 01/23/2024 13:01:54 01/22/20 24 01/22/2024 HERPE S SIMPL EX VIRUS TYPE 2 SPECI FIC AB, IGG herpes simplex virus 2 IgG Negati ve negati ve Not Available [facility] (Lab) [address] [place], [address], 01/23/2024 13:01:55 01/22/20 24 01/22/2024 HERPE S SIMPL EX VIRUS TYPE 2 SPECI FIC AB, IGG herpes simples virus 2 IgG, quant <0.2 ai 0.0-0. 8 Not Available [facility] (Lab) [address] [facility], [place], [address], 01/23/2024 13:01:55 01/22/20 24 01/22/2024 HEPAT ITIS B CORE, IGM hepatitis B core IgM antibody Non-re active non-re active IgM anti- HBc not detec mona. Does not exclu de the possi bilit y of expos ure to or infec tion with HBV. Not Available [facility] (Lab) [address] [place], [address], 01/23/2024 13:01:55 06/24/19 25 06/24/2024 IMAGE GUIDE [...] Fran Valverde MD on 2024 at [address] ----- ----- ----- ----- ----- ----- ----- [...] up as tutu laed, based on darya la guide lines and indiv idual patigael nt consi derat ions. Not Available [facility] (Lab) [address], [place], [address], 06/30/2024 14:26:59 07/05/19 25 07/07/2024 CERVI X/END OCERV IX cervical histology LSIL abnormal Not Available [facility] [address] , [place], [address], 07/07/2024 16:00:21 07/05/19 25 07/07/2024 CERVI X/END OCERV IX endocervical brushing histology LSIL abnormal Not Available [facility]) [address] , [place], [address], 07/07/2024 16:00:21 07/05/19 25 07/07/2024 CERVI X/END [...] JACKSON DYSPL GOMEZ (N87. 0) Not Available [facility] ([facility]) [address] , [place], [address], 07/07/2024 16:00:21 07/05/19 25 07/05/2024 pregn adamaris test, urine HCG negati ve Not Available [facility] [address], [place], [address], 07/05/2024 15:28:54 Result Notes None recorded. Problems Name Problem SNOMED Code Status Onset Date Resolution Date Notes Provider Name and Address Organization Details Recorded Time SNOMED CT Concept Completed 201712/05/2020 Encntr for general adult medical exam w/o abnormal findings ;Recorde d Elsewher e: No [facility] EHR Microelectronics Technician giorgio: N Practi ce ID: [id number] Darci lable Time: 01:30:00 PM Deena Hilliard [facility] 14:14:[address] Concept Completed 201712/05/2020 Encntr for hr systems analyst exam (general ) (routine ) w/o abn findings ;Recorde d Elsewher e: No Locat ion: [facility] N Practi ce ID: [id number] Darci lable Time: 01:00:00 PM Deena Hilliard [facility] 14:14:41 Finding of pattern of menstrua l cycle [id number] Completed 201712/05/2020 Irregula r interval between menstrua l bleeding ;Recorde d Elsewher e: No Locat ion: [facility] S ource: EHR Microelectronics Technician giorgio: N Practi ce ID: [id number] Darci lable Time: 03:00:00 PM Deena Hilliard [facility] 14:14:35 Surveill ance of contrace ption Completed 201712/05/2020 Encounte r for surveill ance of contrace ptives, unspecif ied;Yaron rded Elsewher e: No Locat ion: [facility] S ource: EHR Microelectronics Technician giorgio: N Practi ce ID: [id number] Darci lable Time: 01:30:00 PM Deena johnston [facility] 14:14:44 Pregnanc y test negative [id number] Completed 201712/05/2020 Encounte r for pregnanc y test, result negative ;Recorde d Elsewher e: No [facility]: EHR Microelectronics Technician giorgio: N Marek ce ID: 0001 Darci lable Time: 03:00:00 PM Deena johnston, [facility] 14:14:37 Uses combined oral contrace ption [id number] Completed 201712/05/2020 Encounte r for surveill ance of contrace ptive pills;Pr actice ID: [id number] Deena Hilliard vickie, [facility] 14:14:33 Problem Notes None recorded. Procedures Surgical History Date Name Laterality Status Provider Name and Address Organization Details Recorded Time 07/05/19 Colposcopy completed COLLETTE ALVARES MD [address], [place], [address], [facility] 07/05/2024 14:35:04 06/24/19 25 Date of Last Pap Smear completed Deena Hilliard [facility] 06/30/2024 16:53:16 02/19/20 Control Implant Removal completed ROSALES Petersen [address], [place], [address], [facility] 02/18/2023 11:58:58 12/01/19 extraction of wisdom tooth completed Deena Hilliard [facility] 12/05/2020 14:16:29 Imaging Results None recorded. [...] Updated DateTime 02/17/2023 165.74 cm 27.6 kg/m2 39067.93 g 128 mm[Hg] 78 mm[Hg] [facility] 09:43:35 Date Recorded Body height Body mass index (BMI) Body weight Systolic blood pressure Diastolic blood pressure Provider Name and Address Organization Details Last Updated DateTime 02/18/2023 165.74 cm 27.6 kg/m2 97175.93 g 119 mm[Hg] 79 mm[Hg] [facility] 11:36:08 Date Recorded Body height Body mass index (BMI) Body weight Systolic blood pressure Diastolic blood pressure Provider Name and Address Organization Details Last Updated DateTime 01/22/2024 165.74 cm 28.9 kg/m2 08289.66 g 139 mm[Hg] 83 mm[Hg] Rosemary Gualberto [facility] 4 14:50:28 Date Recorded Body height Body mass index (BMI) Body weight Systolic blood pressure Diastolic blood pressure Provider Name and Address Organization Details Last Updated DateTime 06/24/2024 165.74 cm 28.1 kg/m2 24992.14 g 127 mm[Hg] 83 mm[Hg] CASTILLO Velasquez [facility] 5 09:29:09 Date Recorded Body height Body mass index (BMI) Body weight Systolic blood pressure Diastolic blood pressure Provider Name and Address Organization Details Last Updated DateTime 07/05/2024 165.74 cm 27.7 kg/m2 01185.52 g 139 mm[Hg] 85 mm[Hg] María Hernandez [facility] 5 14:16:41 Social History Question Answer Notes LastModified by Organizat ion Details LastModified Time Tobacco Smoking Status Former Smoker Deena johnston [facility] 12/05/2020 14:16:04 What Is Your Level Of Alcohol Consumption? None [email or web address] Information not available 01/10/2020 Are You Blind Or Do You Have Difficulty Seeing? No Information not available 12/05/2020 What Is Your Level Of Caffeine Consumption? Moderate [email or web address] Information not available 12/05/2020 In The 14 Days Before Symptom Onset, Have You Had Close Contact With A Laboratory-confir med COVID-19 While That Case Was Ill? No [email or web address] Information not available 12/05/2020 In The 14 Days Before Symptom Onset, Have You Had Close Contact With A Person Who Is Under Investigation For COVID-19 While That Person Was Ill? No [email or web address] Information not available 12/05/2020 Have You Been To An Area Known To Be High Risk For COVID-19? No [email or web address] Information not available 12/05/2020 Are You Deaf Or Do You Have Serious Difficulty Hearing? No [email or web address] Information not available 12/05/2020 What Type Of Diet Are You Following? REGULAR Information not available 12/05/2020 Do You Or Have You Ever Used E-cigarettes Or Vape? Current User Of Electronic Cigarettes [email or web address] Information not available 12/05/2020 Do You Use Your Seat Belt Or Car Seat Routinely? Yes Information not available 12/05/2020 Are You Sexually Active? Yes Information not available 06/24/2024 Do You Have Smoke And Carbon Monoxide Detectors In Your Home? Yes [email or web address] Information not available 12/05/2020 Do You Feel Stressed (tense, Restless, Nervous, Or Anxious, Or Unable To Sleep At Night)? [id number] Information not available 12/05/2020 Do You Use Any Illicit Or Recreational Drugs? No [email or web address] Information not available 12/05/2020 Do You Use Sunscreen Routinely? Yes [email or web address] Information not available 12/05/2020 Has Tobacco Cessation Counseling Been Provided? No [email or web address] Information not available 12/05/2020 Do You Or Have You Ever Used Any Other Forms Of Tobacco Or Nicotine? Yes [email or web address] Information not available 12/05/2020 Sex: Unknown Functional Status Question Answer Note LastModified by Organizat ion Details LastModified Time Do you have difficulty walking or climbing stairs? No Information not available 02/17/2023 Are you able to walk? [email or web address] Information not available 12/05/2020 Are you able to care for yourself? Yes Information not available 02/17/2023 Do you have difficulty dressing or bathing? No Information not available 02/17/2023 What is your exercise level? Moderate [email or web address] Information not available 12/05/2020 Mental Status None recorded. Family History Relationship Description Onset Age of this Age Resolved Age Notes LastModified by Organization Details LastModified Time Father Heart disease Not available 12/05 14:15:31 Medical History Condition Response Allergies (Food, seasonal, environmental ) N Other N Blood Transfusion N Drug/Latex Allergies/Reactions N Breast Cancer N Dermatologic Disorders N Lung Disease N [...] SNOMED-CT Code Diagnosis ICD10 Code Diagnosis Note [id number] Alison Foster CNM [facility] [address] [address] 01/10/2020 17:42:26 01/10/2020 18:03:15 Gynecologic examination 03645316 Z01.419 Take Calcium with Vitamin D 1200mg [...] paper copy of today's plan if desired. [id number] Alison Foster CNM [facility] [address],[facility] [place] [place] [address] 12/05/2020 13:54:21 12/05/2020 14:23:26 Surveillance of oral contraception 353925718 Z30.41 Pt is happy with ocp and would like to continue. She is moving next month and wanted to make sure she had refills until she is establishe d with a new provider. She will try to have annual wellness with new provider this fall. [id number] ROSALES Petersen [facility] [address],[facility] [place] [address] 02/17/2023 09:26:16 02/17/2023 10:47:17 Gynecologic examination 47358698 Z01.419 Take Calcium with Vitamin D 1200mg [...] for nexplanon removal Contracept ion care management 961358689 Z30.9 [id number] ROSALES Petersen [facility] [address] [address] 02/18/2023 11:11:25 02/18/2023 12:06:43 Removal of subcutaneous contraceptive 071735952 Z30.46 nexplanon removed (see procedure note)pt tolerated [...] in 3-4 months Contracept ion care management 132139258 Z30.9 Screening procedure 2012 5006 Z13.9 [id number] Janes Gaxiola MD [facility] [address],[facility] [place] [place] [address] 01/22/2024 14:34:02 01/22/2024 16:30:45 Lesion of cervix 641838660 N88.9 28-year-ol d female presents for cervical [...] Spent over 20 minutes on her care. [id number] ROSALES Petersen [facility] [address],[facility] [place] [place] [address] 06/24/2024 09:18:53 06/30/2024 10:58:19 Gynecologic examination 01840829 Z01.419 WWEBC - OCP, r/b/a reviewed, refills [...] than 25 dietary consult advised. Questions answered. [facility] ion care management [id number] Z30.9 Rectal mass 487282928 R1 9.[address] at ED visit 4ref erral to GI for f/u and pelvic MRI [id number] COLLETTE ALVARES MD [facility] [address] [address] 07/05/2024 14:02:36 07/05/2024 14:40:46 Low grade squamous intraepithelial lesion on cervical Papanicolaou smear [id number] 9105 R87.612 -- no hx of abnormal [...] Burns Member ID Guarantor Name 02/17/2023 1 [facility] Suzan Canales [id number] Suzanjohnathan Canales 02/18/2023 1 [facility] Suzan Canales [id number] Suzan Cnaales 01/22/[address] [place] [address] [id number] Suzan Canales [id number] Suzan Canales 06/24/2024 1 [facility] [id number] Suzan Canales [id number] Suzanjohnathan Canales 07/05/[address] [place] [address] [id number] Suzan Canales [id number] Suzan Canales Notes Date Note Type Note [...] starting age 40Notes:denies hx of DVT/PE, HTN, Stroke/RI, cancer, liver disease, or migraine with aurashe is a Non smoker ROSALES Petersen [address], [place], [address], [facility] 02/17/2023 10:46:29 02/18/2023 text/html 27yopresents for nexplanon removalwould like nexplanon removed and to start back on OCP she was on previouslydenies hx of DVT/PE, HTN, Stroke/RI, cancer, liver disease, or migraine with aurashe is a non smoker ROSALES Petersen [address], [place], [address], [facility] 02/18/2023 12:00:51 01/22/2024 text/html 28-year-old herman [...] over 20 minutes on her care. Janes Gaxoila MD [address], [place], [address], [facility] 01/22/2024 16:18:19 06/24/2024 text/html Annual GYNReport [...] a nonemergent basis. denies h/o DVT/PE, HTN, Stroke/RI, cancer, liver disease, or migraine with aurashe is a tobacco smoker, working on quitting ROSALES Petersen [address], [place], [address], [facility] 06/29/2024 12:45:34 07/05/2024 text/html Patient presents for colposcopy indicated for LSIL on recent pap. María johnston, [facility] 07/05/2024 15:29:14 OBGyn Episode No OBEpisode recorded.
== END 2024-10-09 09:33 | disposition home or self-care (01) ==
PROVIDERS: PCP Internal Medicine; Visit Provider Orthopaedic Surgery
DX: M25.562 Pain in left knee (principal)
CPT/HCPCS: 73721